=== PATIENT | female | born 1955 | race Caucasian/White ===

== ENCOUNTER 2017-04-29 11:43 | Inpatient (IN) | payer BC ==
[2017-04-29 13:16] LABS: Bilirubin Negative (Negative); Blood, Urine Negative (Negative); Clarity CLOUDY (Clear); Glucose, Urine (Dipstick) Negative (Negative); Leukocyte Large (Negative); Nitrite Positive (Negative); Protein, Urine (Dipstick) Negative (Neg-Trace); Specific Gravity, Urine 1.011 (1.002-1.036); Urobilinogen 0.2 mg/dL (0.2-1.0); pH, Urine 7.5 (5.0-9.0)
[2017-04-29 13:19] LABS: Bacteria/HPF 1+ HPF (None Seen); Hyaline Casts/LPF 0-3 HYALINE CAST LPF (0-3 Hyaline); RBC/HPF 0-3 HPF (0-3); Squamous Epithelial None Seen HPF (0-3)
[2017-04-29] MEDS ORDERED: Lorazepam 2 MG/ML VIAL ONE ×2 (14:38→15:49)
[2017-04-29] MEDS ORDERED: cefTRIAXone\\ROCEPHIN 2 GM in Sodium Chloride 0.9% 100 ML IVPB SCH (17:00)
[2017-04-29 17:40] LABS: #Basophils 0.1 thou/uL (0.0-0.2); #Eosinphils 0.1 thou/uL (0.0-0.7); #Lymphocytes 1.1 thou/uL (1.20-3.40); #Monocytes 0.8 thou/uL (0.11-0.59); #Neutrophils 8.5 thou/uL (1.40-6.50); %Basophils 0.7 % (0.0-1.0); %Eosinophils 0.9 % (0.0-10.0); %Lymphocytes 10.3 % (21.0-51.0); %Monocytes 7.7 % (0.0-10.0); %Neutrophils 80.3 % (42.0-75.0); Hemoglobin 13.4 g/dL (12.0-16.0); Mean Corpuscular HGB CONC 34.1 g/dL (32.0-36.0); Mean Corpuscular Hemoglobin 30.4 pg (27.0-31.0); Mean Corpuscular Volume 89.2 fl (81.0-99.0); Mean Platelet Volume 7.4 fL (7.4-10.4); Platelet Count 315 thou/uL (130-400); RBC Distribution Width 12.5 % (11.5-14.5); Red Blood Cell (RBC) Count 4.39 mill/uL (4.20-5.40); White Blood Cell (WBC) Count 10.6 thou/uL (4.8-10.8)
[2017-04-29 17:46] LABS: PTT 26.2 SEC (22.9-36.1); Prothrombin Time 12.9 SEC (12.0-14.7)
[2017-04-29 18:11] LABS: ALT (SGPT) 24 U/L (8-55); AST (SGOT) 24 U/L (5-34); Albumin 4.2 g/dL (3.4-4.8); Alkaline Phosphatase 153 U/L (40-150); Anion Gap 12 mmol/L (10-20); BUN (Urea Nitrogen) 7 mg/dL (9.8-20.1); Bilirubin, Total 0.4 mg/dL (0.2-1.2); Calc. Creatinine Clearance 0 mL/min (70-130); Calcium 10.1 mg/dL (7.8-10.44); Carbon Dioxide 27 mmol/L (23-31); Chloride 92 mmol/L (98-107); Estimated GFR-MDRD 81; Globulin 2.8 g/dL (2.4-3.5); Glucose 107 mg/dL (80-115); Potassium 4.4 mmol/L (3.5-5.1); Sodium 127 mmol/L (136-145)
--- NOTE | 2017-04-29 18:24 | MRI ---
THORACIC SPINE MRI WITH AND WITHOUT CONTRAST: Clinical history: Spinal cord compression, pain. FINDINGS: There is a extramedullary tumor of the midthoracic spine epicenter at the approximate T6 level. The m ass measures 3 cm craniocaudal x 1.5 cm AP and demonstrates an avid degree of enhancement with public relations intern al heterogeneity of the enhancement pattern which may relate to an internal cystic or necrotic compon ent. This does result in significant extrinsic compression upon the thoracic spinal cord at this leve l. There is patient motion which limits evaluation. No acute marrow edema. IMPRESSION: Intradural, extramedullary mass of the thoracic vertebral canal producing significant degree of extri nsic mass effect upon the spinal cord with severe cord compression. Motion artifact does limit assess ment although there is evidence to indicate associated cord edema at the spinal cord cephalad and cau rupal to the mass. Recommend neurosurgical consultation. POS: PHILIP
[2017-04-29] MEDS ORDERED: Mag-Al 1200 mg/1200 mg/30 ML UDCUP PO PRN (18:40)
[2017-04-29] MEDS ORDERED: Milk Of Magnesia 30 ML UDCUP PO PRN (18:40)
[2017-04-29] MEDS ORDERED: Acetaminophen 650 MG Suppository PR PRN (18:40)
[2017-04-29] MEDS ORDERED: Ondansetron PF 4 MG/2 ML Vial IVP PRN (18:40)
[2017-04-29] MEDS: Sodium Chloride 0.9% 1,000 ML IV SCH (20:33)
[2017-04-29] MEDS: Dexamethasone 4 mg/ml Vial SLOW IVP SCH (20:33)
[2017-04-29] MEDS: Famotidine/PF 20 mg/2ml Vial SLOW IVP SCH (20:33)
[2017-04-29] MEDS: cefTRIAXone\\ROCEPHIN 2 GM in Sodium Chloride 0.9% 100 ML IVPB SCH (20:45)
[2017-04-29] MEDS ORDERED: Pregabalin 50 MG CAP PO SCH (22:15)
[2017-04-29] MEDS ORDERED: oxyCODONE 5 MG TAB PO PRN (22:20)
[2017-04-29] MEDS ORDERED: oxyCODONE ER 20 MG TAB PO SCH (22:30)
[2017-04-29] MEDS ORDERED: clonazePAM 1 MG TAB PO SCH (22:30)
[2017-04-29] MEDS ORDERED: carBAMazepine 200 MG TAB PO SCH (22:30)
[2017-04-29 22:51] VITALS: BMI 20.8
[2017-04-30] MEDS: oxyCODONE 5 MG TAB PO PRN ×3 (00:03→23:46)
[2017-04-30] MEDS: Dexamethasone 4 mg/ml Vial SLOW IVP SCH ×4 (00:04→18:01)
--- NOTE | 2017-04-30 00:10 | HP ---
ATTENDING PHYSICIAN: Dr. Ravinder White. HISTORY OF PRESENT ILLNESS: The patient is a 61-year-old female with a past medical history of schwannomatosis, hypertension, hyperlipidemia, who presents to the emergency department for progressing worsening lower extremity weakness. Patient states that she had been unsteady on her feet for the last several months, but had significant decline over the last 3 weeks. 3 weeks ago , she began using a walker for regular ambulation. One week ago, she had additional decline where she could no longer lift herself from the chair or ambulate without assistance by her . The symptoms are also associated with signs of dysesthesia to bilateral lower extremities, right greater than the left, urinary retention, and constipation. She denies saddle anesthesia. Patient was brought to the ER by her family today for this rapid decline in her status. I am seeing the patient at the bedside. She is weak throughout the lower extremities 3/5 right greater than left, hyporeflexive throughout the lower extremities. She had a 500 mL postvoid residual. Partial T-spine imaging with MRI imaging with contrast was done, which showed intradural extramedullary lesion with spinal cord compression at T6. Patient was unable to tolerate remainder of the thoracic and lumbar MRI secondary to anxiety and pain. PAST MEDICAL HISTORY: Schwannomatosis, hypertension, hyperlipidemia. PAST SURGICAL HISTORY: Schwannoma excision in the left wrist, right sciatic nerve, and left cranial nerve. SOCIAL HISTORY: Patient is . She lives at home. She does not smoke, drink or use any drugs. ALLERGIES: She has no known drug allergies. PHYSICAL EXAMINATION: GENERAL: Patient is sitting comfortably in the bed in no acute distress. VITAL SIGNS: BP is 169/87, pulse is 76, respiration rate is 19, patient is 98% on room air, temperature is 97.7. HEENT: Normocephalic, atraumatic. EYES: PERRLA. Extraocular movements intact. ENT: Oral mucosa is pink, moist, intact. She has a normal voice. NECK: Nontender to palpation. Free active range of motion, no meningismus or nuchal rigidity. RESPIRATORY: She has symmetric chest expansion. She is breathing comfortably, no evidence of dyspnea. CARDIOVASCULAR: Regular rate and rhythm. ABDOMEN: Soft throughout, nontender to palpation. BACK: Tender to palpation over the mid thoracic spine and bilateral paraspinal musculature. NEUROLOGIC: Patient has a normal cranial nerve exam. She is A&O x4. She is weak throughout the lower extremities, 3/5. She has decreased sensation over the right proximal lateral leg. She is hyperreflexive throughout the lower extremities. Negative clonus. ASSESSMENT: T6 intradural extramedullary lesion suspicious for schwannoma with spinal cord compression. PLAN: Patient will be admitted to medical/surgical floor under our service. We will make her n.p.o. tonight with plans for MRI of thoracic and lumbar spine with anesthesia first thing in the morning. I have discussed this with Radha over a day stay and she is aware and patient has been asked to scheduled with priority. Medicine will also assist with medical management. We will also start the patient on Decadron at this time. I have discussed this plan with Dr. White, who is in agreement. RUBY
[2017-04-30] MEDS: Naproxen 500 MG TAB PO PRN ×2 (02:13→16:26)
[2017-04-30 04:37] LABS: #Lymphocytes 0.7 thou/uL (1.20-3.40); #Monocytes 0.4 thou/uL (0.11-0.59); #Neutrophils 9.3 thou/uL (1.40-6.50); %Basophils 0.5 % (0.0-1.0); %Eosinophils 0.1 % (0.0-10.0); %Lymphocytes 6.5 % (21.0-51.0); %Monocytes 4.2 % (0.0-10.0); %Neutrophils 88.8 % (42.0-75.0); Hemoglobin 12.5 g/dL (12.0-16.0); Mean Corpuscular HGB CONC 34.4 g/dL (32.0-36.0); Mean Corpuscular Hemoglobin 30.9 pg (27.0-31.0); Mean Corpuscular Volume 89.8 fl (81.0-99.0); Mean Platelet Volume 7.5 fL (7.4-10.4); Platelet Count 307 thou/uL (130-400); RBC Distribution Width 12.6 % (11.5-14.5); Red Blood Cell (RBC) Count 4.05 mill/uL (4.20-5.40); White Blood Cell (WBC) Count 10.4 thou/uL (4.8-10.8)
[2017-04-30 04:46] LABS: Anion Gap 10 mmol/L (10-20); BUN (Urea Nitrogen) 7 mg/dL (9.8-20.1); Calc. Creatinine Clearance 70 mL/min (70-130); Calcium 9.7 mg/dL (7.8-10.44); Carbon Dioxide 27 mmol/L (23-31); Chloride 99 mmol/L (98-107); Estimated GFR-MDRD 72; Glucose 152 mg/dL (80-115); Potassium 4.1 mmol/L (3.5-5.1); Sodium 132 mmol/L (136-145)
[2017-04-30] MEDS ORDERED: Sodium Chloride 0.65% Nasal 44 ML BOT EA NARE PRN (07:59)
[2017-04-30] MEDS ORDERED: Senokot 8.6 MG TAB PO PRN (07:59)
[2017-04-30] MEDS ORDERED: Ondansetron ODT 4 MG TAB PO PRN (07:59)
[2017-04-30] MEDS ORDERED: Artificial Tears 18 DROP/0.9 ML EA EYE PRN (07:59)
[2017-04-30] MEDS ORDERED: Temazepam 15 MG CAP PO PRN (07:59)
[2017-04-30] MEDS ORDERED: Chloraseptic Spray 180 ml Bottle PO PRN (07:59)
[2017-04-30] MEDS ORDERED: Loratadine 10 MG TAB PO PRN (07:59)
[2017-04-30] MEDS ORDERED: hydrALAZINE 20 MG/ML VIAL SLOW IVP PRN (07:59)
[2017-04-30] MEDS ORDERED: Diabetic Tussin 200 MG/10 ML UDCUP PO PRN (07:59)
[2017-04-30] MEDS ORDERED: Loperamide HCl 2 MG CAP PO PRN (07:59)
[2017-04-30] MEDS ORDERED: Eucerin (Mineral Oil/Petrolatum,White) 30 gm Jar TOP PRN (07:59)
[2017-04-30] MEDS: Amlodipine 5 MG TAB PO SCH (08:40)
[2017-04-30] MEDS: carBAMazepine 200 MG TAB PO SCH ×4 (08:41→21:36)
[2017-04-30] MEDS: clonazePAM 1 MG TAB PO SCH ×4 (08:41→21:36)
[2017-04-30] MEDS: oxyCODONE ER 20 MG TAB PO SCH ×2 (08:42→21:37)
[2017-04-30] MEDS: Famotidine/PF 20 mg/2ml Vial SLOW IVP SCH ×2 (08:42→21:40)
[2017-04-30] MEDS: Loratadine/Pseudoephedrine 10/240 mg Tablet PO SCH (08:43)
[2017-04-30] MEDS ORDERED: Fluticasone Propionate Nasal Spray 16 gm Bottle NASAL SCH (09:00)
[2017-04-30] MEDS ORDERED: Non-Formulary Item 1 EACH (Benazepril Hcl [Benazepril Hcl] 40 MG) PO SCH (09:00)
[2017-04-30] MEDS ORDERED: OXYCODONE HCL 60 MG PO SCH (09:00)
[2017-04-30] MEDS ORDERED: Polyethylene Glycol 3350 17 GM Packet PO SCH (09:00)
[2017-04-30] MEDS: Polyethylene Glycol 3350 17 GM Packet PO SCH (09:57)
[2017-04-30] MEDS: Sodium Chloride 0.9% 1,000 ML IV SCH ×2 (09:57→23:49)
--- NOTE | 2017-04-30 11:01 | PRG ---
DATE OF SERVICE: 04/29/2017 HISTORY OF PRESENT ILLNESS: I am seeing Ms. Moffett regarding progressive paraplegia. Please refer to Chasidy Thompson's dictation for full details. In brief, Ms. Moffett is a 61-year-old woman with a history of schwannoma ptosis having had an intracra nial schwannoma removed as well as multiple peripheral nerve tumors including a sciatic tumor that wa s removed. She has not had recent surveillance. For the past 6 months she has had progressive walki ng difficulty that has been progressive of late. She is currently unable to ambulate independently w ith diffuse weakness in the legs. She has also had some complaints of dysfunction in the urinary and bowel functions with a recent UTI as well. MRI of thoracic spine reveals a large T6 tumor likely to be an intradural schwannoma compressing the spinal cord. ASSESSMENT AND PLAN: The patient has a large thoracic tumor causing paraplegia and this will need to be surgically resected. We discussed indications, alternatives of removing this with the patient an d her . I estimated approximately 10% likelihood of neurologic deterioration with surgery and we also discussed complications including CSF leak and other. They expressed understanding and wish ed to proceed.
[2017-04-30] MEDS ORDERED: oxyCODONE 5 MG TAB PO SCH (12:00)
[2017-04-30] MEDS ORDERED: Fentanyl 100 MCG/2 ML VIAL ONE (12:02)
[2017-04-30] MEDS ORDERED: Midazolam HCl 2 mg/2 ml Vial ONE (12:02)
[2017-04-30] MEDS ORDERED: HYDROmorphone 0.5 MG/0.5 ML SYRINGE ONE (14:01)
--- NOTE | 2017-04-30 15:14 | MRI ---
MRI OF THE LUMBAR SPINE WITH AND WITHOUT CONTRAST: DATE: 04/30/17. COMPARISON: None. HISTORY: Lower extremity weakness, assess for cauda equina syndrome, thoracic spine mass noted on 04/29/17 [facility] spine MRI. TECHNIQUE: Multiplanar multisequence MRI imaging of the lumbar spine is provided with and without contrast. FINDINGS: The sagittal STIR imaging demonstrates no focal area of osseous marrow edema. There is significant l umbar spine levoscoliosis centered at the L1-2 level. There is no significant anterolisthesis or retrolisthesis noted within the lumbar spine. Assuming 5 lumbar-type vertebral bodies, conus medullaris terminates at the T12-L1 level. T12-L1: Intervertebral disk height and signal intensity is within normal limits. Mild left-sided fa cet hypertrophy. No significant central canal or neural foraminal stenosis. L1-2: There is mild bilateral facet hypertrophy. There is disk space narrowing and disk desiccation with mild disk bulge. No associated central canal stenosis. Left lateral osteophyte formation note d. There is associated mild to moderate left neural foraminal stenosis. No significant central canal or right neural foraminal stenosis. L2-3: There is prominent degenerative end plate change. There is disk space narrowing, disk desicca tion, and right-sided disk-osteophyte complex with minimal right lateral recess stenosis. There is b ilateral facet hypertrophy with a moderate degree of right neural foraminal stenosis. No left neural foraminal stenosis. L3-4: There is bilateral facet hypertrophy. There is disk desiccation, disk space narrowing, and va cuum disk formation. There is mild to moderate right neural foraminal stenosis. No significant cent ral canal or left neural foraminal stenosis. L4-5: Bilateral facet hypertrophy present. There is disk desiccation. No significant central canal or neural foraminal stenosis. L5-S1: Left-sided hemilaminectomy changes are present. There is no significant central canal or elena ral foraminal stenosis. Multiple expansile T2 hyperintense lesions noted within the sacrum. These represent numerous perineu ral sleeve cysts/Tarlov cysts. Partially imaged uterus is heterogeneous and demonstrates partially visualized irregular masses sugge sting a fibroid uterus. Postcontrast imaging demonstrates an enhancing mass within the nerve roots of the cauda equina just t o the right of midline measuring 8 mm, at the axial level of the L2-3 interspace. The postcontrast imaging is otherwise unremarkable. The imaged retroperitoneal structures appear grossly unremarkable. IMPRESSION: 1. There is an enhancing lesion associated with the nerve roots of the cauda equina at the L2-3 leve l. The differential diagnosis for this lesion includes neurogenic tumor, including schwannoma, versu s metastatic disease. Of note, there is a lesion within the thoracic spine which demonstrates a conf iguration most suspicious for a tumor such as neurofibroma or schwannoma. 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 Recommend full imaging of the neuro ax is with brain and cervical spine MRI with and without contrast. CODE T POS: YESENIA
--- NOTE | 2017-04-30 15:19 | MRI ---
THORACIC SPINE MRI WITH AND WITHOUT CONTRAST: CLINICAL HISTORY: Spinal mass. FINDINGS: Repeat imaging requested by neurosurgeon due to prior motion artifact. Re-demonstration of an intradural extramedullary mass centered at the T6 level, which occupies the ma jority of the vertebral canal and markedly displaces and flattens the thoracic spinal cord to the lef t anterolateral wall of the vertebral column. The mass extends through and expands the right neural foramen, which is more optimally depicted without the preceding motion artifact. The mass measures 3 .2 cm in craniocaudal dimension x 1.7 cm AP x 3 cm transverse, when including the right foraminal ext ension. There is mild associated intrinsic T2 hyperintensity of the region of compressed spinal cord, discuss ed above, likely related to intramedullary edema. IMPRESSION: Prominent sized mass located within the intradural extramedullary space, at the T6 level, which does traverse and expand the right neural foramen. This produces marked cord compression and left anterol ateral cord displacement. Associated cord edema is present. The morphology of this finding favors a schwannoma. 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 These exams sh ould be performed with and without contrast. POS: YESENIA
--- NOTE | 2017-04-30 15:29 | CON ---
PRIMARY CARE PHYSICIAN: Indira Wood M.D. PRIMARY ATTENDING: Ravinder White M.D. REASON FOR CONSULT: Medical comanagement. REASON FOR ADMISSION: Thoracic spine tumor and paraplegia. HISTORY OF PRESENT ILLNESS: A 61-year-old female who has underlying history of schwannoma and chroni c pain disorder secondary to schwannoma. For last 3 weeks, patient has gradually difficulty ambulati on. She is not able to keep herself stand. She requires lot of assistance to ambulate at home. She is having both lower extremity weakness. The patient was also having difficulty urination. She was having dysuria as well as agitation. She was also constipated lately, regular stool softener, which was used to work but for the last few days , stool softener is also not working. Patient had episode of fall from standing and she landed on her back and after that she was having si gnificant amount of pain and that is why family member brought her to the emergency room. Patient thompson s numbness in right lower extremity. She denies any saddle anesthesia or incontinence. At home for the last 2-3 weeks, patient was requiring walker for ambulation and with a lot of support from her hu sband as well. She denies any fever. She denies any chills. She denies any nausea, vomiting, chest pain, palpitation. This patient was evaluated in the emergency room. She had thoracic spine MRI which showed intraducta l extramedullary mass of the thoracic vertebral canal with significant spinal cord compression. Laurel ent was admitted under Neurosurgery and subsequently we were consulted for medical comanagement. This patient has underlying history of schwannoma, hypertension, chronic pain disorder, and dyslipide ab. REVIEW OF SYSTEMS: The following complete review of systems was negative, unless otherwise mentioned in the HPI or below: Constitutional: Weight loss or gain, ability to conduct usual activities. Skin: Rash, itching. Eyes: Double vision, pain. ENT/Mouth: Nose bleeding, neck stiffness, pain, tenderness. Cardiovascular: Palpitations, dyspnea on exertion, orthopnea. Respiratory: Shortness of breath, wheezing, cough, hemoptysis, fever or night sweats. Gastrointestinal: Poor appetite, abdominal pain, heartburn, nausea, vomiting, constipation, or diarr hea. Genitourinary: Urgency, frequency, dysuria, nocturia. Musculoskeletal: Pain, swelling. Neurologic/Psychiatric: Anxiety, depression. Allergy/Immunologic: Skin rash, bleeding tendency. Please see my HPI for pertinent positive and negative. All other review of systems reviewed and nega tive except as mentioned in the HPI. ALLERGIES: No known drug allergies. CURRENT HOME MEDICATIONS: Amlodipine 2.5 mg p.o. daily, benazepril 40 mg p.o. daily, Tegretol 200 mg q.i.d., cetirizine with pseudoephedrine one tablet p.o. daily, clonazepam 1 mg p.o. q.i.d., Flonase nasal spray daily, naproxen 500 mg twice daily, oxycodone 2 tablets q.6 hourly p.r.n., OxyContin 60 m g p.o. b.i.d., MiraLax 17 grams p.o. daily, Lyrica 100 mg p.o. at bedtime, Crestor 20 mg p.o. daily. PAST MEDICAL HISTORY: Hypertension, schwannoma, and dyslipidemia. PAST SURGICAL HISTORY: History of schwannoma excision in left wrist, right sciatic nerve and cranial nerve 5. PAST PSYCHIATRIC HISTORY: Reviewed and negative. SOCIAL HISTORY: Patient is . She lives at home with her . No history of tobacco, alc ohol or illicit drug abuse. FAMILY HISTORY: No strong family history of premature coronary artery disease, stroke or cancer. EMERGENCY ROOM COURSE: Patient was given Rocephin 2 grams and Ativan 1 mg. PHYSICAL EXAMINATION: VITAL SIGNS: On arrival to the emergency room, blood pressure 169/87, pulse 76, respiratory rate 19, temperature 97.7, saturation 98% on room air, weight 63.5 kilograms. GENERAL: Patient is currently alert, awake, hypertensive, in no obvious acute distress. HEAD: Normocephalic, atraumatic. EYES: Pupils round, reactive to light. Extraocular muscle intact. ENT: Oropharynx within normal limits. Moist mucous membranes. No oral lesions. No pharyngeal eryt shelley, no exudate. NECK: Supple, no JVD, no thyromegaly, no carotid bruit, no jugular venous distention. LUNGS: Clear to auscultation without any rhonchi or rales. CARDIAC: S1 and S2 regular without any murmur. ABDOMEN: Soft. Bowel sounds present. No suprapubic tenderness. Rectal examination was done in the emergency room and as per report, rectal tone was absent. BACK: On examination, no CVA tenderness. No point tenderness. EXTREMITIES: Upper extremity passive movements of all joints are normal. Lower extremity passive mo vements of all joints are normal. No edema, good peripheral pulsation. SKIN: No skin rash. HEMATOLOGICAL SYSTEM: No lymphadenopathy. PSYCHIATRIC: Normal affect. NEUROLOGIC: The patient does have weakness of right lower extremity on both side. Patient also has reduced sensation in both lower extremities as well as saddle anesthesia. ASSESSMENT AND PLAN/IMPRESSION: 1. Paraplegia likely due to intraductal extramedullary spinal mass with severe spinal cord compressi on in thoracic spine. Neurosurgeon already admitted this patient. This patient is going to get MRI under anesthesia later on today and patient is planned for surgical intervention tomorrow. We will d efer management to primary team. 2. Urinary tract infection. Patient will be treated with Rocephin 2 gram IV daily. We will follow up on urine culture result. So far, urine culture is growing E. coli, sensitivities pending. 3. Hyponatremia. The patient is receiving IV fluid. I am suspecting hyponatremia may be related wi th Tegretol from syndrome of inappropriate antidiuretic hormone. We will repeat BMP tomorrow. If so dium does not improve, then we will stop IV fluids. If sodium is continued to low, then we will cons ider doing hyponatremia workup. 4. Hypertension. The patient's hypertension is most likely related with her pain, but patient will continue her home dose of amlodipine and benazepril. 5. Dyslipidemia. We will continue Crestor 20 mg p.o. at bedtime. 6. Chronic pain disorder. The patient has schwannoma and that is causing a lot of pain. The patien t is on OxyContin as well as oxycodone immediate release, Lyrica, Klonopin and naproxen, which we morgan l continue as per home dosage. 7. Deep venous thrombosis prophylaxis. We will hold on Lovenox therapy because patient is planned f or spinal surgery tomorrow. 8. Gastrointestinal prophylaxis. The patient is already on Pepcid 20 mg IV b.i.d. 9. Code status: The patient is FULL CODE. Patient's is surrogate decision maker. Disposition plan based on clinical course. We are expecting patient's stay in hospital more than 2 m idnights. Eventually, this patient will need placement to rehabilitation. Thank you for the consult. We will follow up with you while in hospital.
[2017-04-30] MEDS ORDERED: Rosuvastatin 20 MG TAB PO SCH (21:00)
[2017-04-30] MEDS ORDERED: Pregabalin 50 MG CAP PO SCH (21:00)
[2017-04-30] MEDS: Rosuvastatin 20 MG TAB PO SCH (21:39)
[2017-04-30] MEDS: Pregabalin 50 MG CAP PO SCH (21:39)
[2017-04-30] MEDS: cefTRIAXone\\ROCEPHIN 2 GM in Sodium Chloride 0.9% 100 ML IVPB SCH (21:54)
[2017-05-01] MEDS: Dexamethasone 4 mg/ml Vial SLOW IVP SCH ×2 (01:17→13:44)
[2017-05-01 06:07] LABS: #Basophils 0.1 thou/uL (0.0-0.2); #Monocytes 0.5 thou/uL (0.11-0.59); #Neutrophils 7.9 thou/uL (1.40-6.50); %Basophils 0.6 % (0.0-1.0); %Eosinophils 0.4 % (0.0-10.0); %Lymphocytes 10.5 % (21.0-51.0); %Monocytes 5.1 % (0.0-10.0); %Neutrophils 83.3 % (42.0-75.0); Hemoglobin 11.5 g/dL (12.0-16.0); Mean Corpuscular Hemoglobin 30.2 pg (27.0-31.0); Mean Corpuscular Volume 91.6 fl (81.0-99.0); Mean Platelet Volume 7.3 fL (7.4-10.4); Platelet Count 305 thou/uL (130-400); RBC Distribution Width 12.8 % (11.5-14.5); Red Blood Cell (RBC) Count 3.82 mill/uL (4.20-5.40); White Blood Cell (WBC) Count 9.4 thou/uL (4.8-10.8)
[2017-05-01 06:22] LABS: Anion Gap 9 mmol/L (10-20); BUN (Urea Nitrogen) 8 mg/dL (9.8-20.1); Calc. Creatinine Clearance 80 mL/min (70-130); Calcium 9.2 mg/dL (7.8-10.44); Carbon Dioxide 28 mmol/L (23-31); Chloride 103 mmol/L (98-107); Estimated GFR-MDRD 85; Glucose 118 mg/dL (80-115); Potassium 3.8 mmol/L (3.5-5.1); Sodium 136 mmol/L (136-145)
[2017-05-01] MEDS ORDERED: CEFAZOLIN/Water 2 GM/20 ML SYRINGE ONE (06:55)
[2017-05-01] MEDS ORDERED: Nitroglycerin 50 MG/250 ML BOT 250 ML ONE (07:12)
[2017-05-01] MEDS ORDERED: Fentanyl 100 MCG/2 ML VIAL ONE ×3 (07:24→10:59)
[2017-05-01] MEDS ORDERED: PHENYLEPHRINE-NS 100 MCG/ML 10 ML SYRINGE ONE ×2 (09:49→14:56)
[2017-05-01] MEDS ORDERED: Ondansetron HCl/PF 4 MG/2 ML Vial IVP PRN (10:17)
[2017-05-01] MEDS ORDERED: Promethazine HCl 25 MG/ML VIAL IM PRN (10:17)
[2017-05-01] MEDS ORDERED: PACU-Morphine 4MG/ML VIAL SLOW IVP PRN (10:17)
[2017-05-01] MEDS ORDERED: Promethazine HCl 25 MG/ML VIAL SLOW IVP PRN (10:17)
[2017-05-01] MEDS ORDERED: HYDROmorphone 2 MG/ML VIAL SLOW IVP PRN (10:17)
[2017-05-01] MEDS ORDERED: HYDROmorphone 0.5 MG/0.5 ML SYRINGE ONE (10:25)
--- NOTE | 2017-05-01 10:47 | OP ---
DATE OF PROCEDURE: 05/01/2017 SURGEON: Ravinder White M.D. MOTORBOAT MECHANIC HELPER: Jethro Nolan PA-C PROCEDURE: T5-T7 thoracic laminectomies, excision intradural extramedullary tumor, operating microsc ope. PROCEDURE IN DETAIL: The patient was brought into the operating room, intubated. She was rolled in the prone position on gel-filled chest rolls. Incision made exposing T5 through T7 and our level was confirmed by x-ray. We performed complete T7, complete T6, and complete T5 laminectomies. After co mplete exposure and then extending the exposure to the right T6 neural foramen. We opened the dura a nd the tumor was immediately evident distorting the spinal cord as anticipated and extending up the r ight T6 neural foramen. We carefully dissected around the tumor and ultimately needed to debulk the tumor to obtain adequate room. Multiple specimens were sent for final pathologic examination. The t umor was fairly easily detached from the spinal cord. After we completely removed the intrathecal co mponent of the tumor, we focused on the foraminal component. At the distal aspect, we identified mack e normal nerve outside the foramen and using a Ligaclip clipped the nerve at this stage. At the medi al aspect a large dural defect had been created by the tumor. We completely resected the tumor and a gross total resection was achieved. Next, we used bovine pericardium to repair the foraminal dural defect using 4-0 silk sutures in an interrupted fashion. Next, the midline dura was closed with a ru nning 4-0 Prolene suture. This was reinforced with Duragen artificial dura and the substantial Gelfo am was placed in the neural foramen. After the wound had been extensively irrigated and immaculate h emostasis was secured. Vancomycin powder was applied and the wound was closed in anatomic layers.
--- NOTE | 2017-05-01 11:00 | PDOC.PN ---
- Subjective Encounter Start Date: 05/01/17 Encounter Start Time: 09:20 -: old records requested/rev - Objective Resuscitation Status: Resuscitation Status FULL:Full Resuscitation MAR Reviewed: Yes Vital Signs & Weight: Vital Signs (12 hours) Temp Pulse Resp BP BP Pulse Ox 05/01/17 06:27 98.3 F 80 19 191/95 H 100 05/01/17 06:25 80 191/95 H 05/01/17 06:00 98.3 F 80 19 191/95 H 100 05/01/17 00:00 97.8 F 84 16 159/84 H 96 Weight Weight 135 lb I&O: 04/30/17 05/01/17 05/02/17 06:59 06:59 06:59 Intake Total 1999 2395 Output Total 2499 2350 Balance -500 45 Result Diagrams: 05/01/17 05:45 05/01/17 05:45 Phys Exam - Physical Examination Constitutional: NAD HEENT: PERRLA, moist MMs, sclera anicteric Neck: no JVD, supple Respiratory: no wheezing, no rales, no rhonchi Cardiovascular: RRR, no significant murmur, no rub Gastrointestinal: soft, non-tender, no distention, positive bowel sounds paraplegia Lymphatic: no nodes Psychiatric: normal affect Skin: no rash, normal turgor Dx/Plan (1) Hyponatremia Code(s): E87.1 - HYPO-OSMOLALITY AND HYPONATREMIA Status: Resolved (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 - NEOPLM OF UNSP BEHAV OF ENDO GLANDS AND OTH PRT NERVOUS SYS Status: Acute Comment: s/p thorecic laminectomy and tumor excision (3) Paraplegia at T9 level Code(s): G83.9 - PARALYTIC SYNDROME, UNSPECIFIED Status: Acute (4) UTI (urinary tract infection) Status: Acute (5) Chronic pain disorder Code(s): G89.4 - CHRONIC PAIN SYNDROME Status: Chronic (6) Dyslipidemia Code(s): E78.5 - HYPERLIPIDEMIA, UNSPECIFIED Status: Chronic (7) Hypertension Code(s): I10 - ESSENTIAL (PRIMARY) HYPERTENSION Status: Chronic (8) Schwannoma Code(s): D36.10 - BENIGN NEOPLASM OF PRPH NERVES AND AUTONM NERVOUS SYS, UNSP Status: Chronic - Plan cont current plan of care, continue antibiotics * continue post operative care as per neurosurgeon * continue rocephin * continue home meds * medication reviewed as below * symptomatic treatment * will need rehab on discharge. Review of Systems - Review of Systems Constitutional: negative: fever, chills, sweats, weakness, malaise, other Eyes: negative: Pain, Vision Change, Conjunctivae Inflammation, Eyelid Inflammation, Redness, Other ENT: negative: Ear Pain, Ear Discharge, Nose Pain, Nose Discharge, Nose Congestion, Mouth Pain, Mouth Swelling, Throat Pain, Throat Swelling, Other Respiratory: negative: Cough, Dry, Shortness of Breath, Hemoptysis, SOB with Excertion, Pleuritic Pain, Sputum, Wheezing Cardiovascular: negative: chest pain, palpitations, orthopnea, paroxysmal nocturnal dyspnea, edema, light headedness, other Gastrointestinal: negative: Nausea, Vomiting, Abdominal Pain, Diarrhea, Constipation, Melena, Hematochezia, Other Genitourinary: negative: Dysuria, Frequency, Incontinence, Hematuria, Retention , Other - Medications/Allergies Allergies/Adverse Reactions: Allergies Allergy/AdvReac Type Severity Reaction Status Date / Time No Known Drug Allergies Allergy Verified 04/29/17 16:42 Medications: Current Medications Acetaminophen (Tylenol) 650 mg [place] Q4H PRN PRN Reason: Headache/Fever or Pain Acetaminophen (Tylenol) 650 mg PO Q4H PRN PRN Reason: Headache/Fever or Mild Pain Hydrocodone Bitart/Acetaminophen ([place] 10/325) 1 tab PO Q4H PRN PRN Reason: Moderate Pain (4-6) Al Hydroxide/Mg Hydroxide (Maalox) 30 ml PO Q6H PRN PRN Reason: Heartburn or Indigestion Amlodipine Besylate (Norvasc) 2.5 mg PO DAILY [facility] Last Admin: 04/30/17 08:40 Dose: 2.5 mg Artificial Tears (Tears Naturale) 0 drop EA EYE PRN PRN PRN Reason: Dry Eyes Benazepril HCl (Lotensin) 40 mg PO DAILY [facility] Last Admin: 04/30/17 08:41 Dose: 40 mg Carbamazepine (Tegretol) 200 mg PO QID [facility] Last Admin: 04/30/17 21:36 Dose: 200 mg Clonazepam (Klonopin) 1 mg PO QID [facility] Last Admin: 04/30/17 21:36 Dose: 1 mg Famotidine (Pepcid) 20 mg SLOW IVP Q12HR [facility] Last Admin: 04/30/17 21:40 Dose: 20 mg Fentanyl (Pacu-Sublimaze) 50 mcg SLOW IVP Q10MIN PRN PRN Reason: Moderate to Severe Pain (6-10) Stop: 05/01/17 13:17 Fluticasone Propionate (Flonase Nasal [place]) 0 gm NASAL DAILY [facility] Guaifenesin (Robitussin Sf) 200 mg PO Q4H PRN PRN Reason: Cough Hydralazine HCl (Apresoline) 10 mg SLOW IVP Q4H PRN PRN Reason: Systolic BP > 180 Last Admin: 05/01/17 06:25 Dose: 10 mg Hydromorphone HCl (Pacu-Dilaudid) 0.5 mg SLOW IVP Q10MIN PRN PRN Reason: Moderate to Severe Pain (6-10) Stop: 05/01/17 13:17 Sodium Chloride (Normal Saline 0.9%) 1,000 mls @ 75 mls/hr IV .[id number] [facility] Last Admin: 04/30/17 23:49 Dose: 1,000 mls Ceftriaxone Sodium 2 gm/ (Sodium Chloride) 100 mls @ 200 mls/hr IVPB 2100 [facility] Last Admin: 04/30/17 21:54 Dose: 100 mls Loperamide HCl (Imodium) 2 mg PO PRN PRN PRN Reason: Diarrhea/Loose Stools Loratadine/Pseudoephedrine Sulfate (Claritin-D 24 Hour) 1 tab PO DAILY [facility] Last Admin: 04/30/17 08:43 Dose: 1 tab Magnesium Hydroxide (Milk Of Magnesium) 30 ml PO DAILYPRN PRN PRN Reason: Constipation Mineral Oil/White Petrolatum (Eucerin Cream) 0 gm TOP BIDPRN PRN PRN Reason: Dry Skin Morphine Sulfate (Morphine) 2 mg SLOW IVP Q4H PRN PRN Reason: Severe Pain (7-10) Morphine Sulfate (Pacu-Morphine Sulfate) 4 mg SLOW IVP ONE PRN PRN Reason: Moderate to Severe Pain (6-10) Stop: 05/01/17 13:17 Ondansetron HCl (Zofran) 4 mg IVP Q6H PRN PRN Reason: Nausea/Vomiting Ondansetron HCl (Zofran Odt) 4 mg PO Q6H PRN PRN Reason: Nausea/Vomiting Ondansetron HCl (Pacu-Zofran) 4 mg IVP ONE PRN PRN Reason: Nausea/Vomiting Stop: 05/01/17 13:17 Oxycodone HCl (Oxycodone Ir) 5 mg PO Q6H PRN PRN Reason: .BREAKTHROUGH PAIN Oxycodone HCl (Oxycodone Ir) 10 mg PO Q6H PRN PRN Reason: .BREAKTHROUGH PAIN SEVERE Last Admin: 04/30/17 23:46 Dose: 10 mg Oxycodone HCl (Oxycontin) 60 mg PO Q12HR [facility] Last Admin: 04/30/17 21:37 Dose: 60 mg Phenol (Chloraseptic [place] 180 Ml Bot) 0 ml PO PRN PRN PRN Reason: Sore Throat Polyethylene Glycol (Miralax) 17 gm PO DAILY [facility] Last Admin: 04/30/17 09:57 Dose: Not Given Pregabalin (Lyrica) 100 mg PO [facility] Last Admin: 04/30/17 21:39 Dose: 100 mg Promethazine HCl (Pacu-Phenergan) 6.25 mg SLOW IVP ONE PRN PRN Reason: Nausea/Vomiting Stop: 05/01/17 13:17 Promethazine HCl (Pacu-Phenergan) 6.25 mg IM ONE PRN PRN Reason: Nausea/Vomiting Stop: 05/01/17 13:17 Rosuvastatin Calcium (Crestor) 20 mg PO [facility] Last Admin: 04/30/17 21:39 Dose: 20 mg Senna (Senokot) 2 tab PO HSPRN PRN PRN Reason: Constipation Sodium Chloride ([place] Nasal [place] 0.65%) 0 ml EA NARE QIDPRN PRN PRN Reason: Nasal Congestion Temazepam (Restoril) 15 mg PO HSPRN PRN PRN Reason: Insomnia
[2017-05-01] MEDS: Amlodipine 5 MG TAB PO SCH (11:50)
[2017-05-01] MEDS: oxyCODONE ER 20 MG TAB PO SCH ×2 (11:51→20:24)
[2017-05-01] MEDS: Loratadine/Pseudoephedrine 10/240 mg Tablet PO SCH (11:51)
[2017-05-01] MEDS: Fluticasone Propionate Nasal Spray 16 gm Bottle NASAL SCH (11:51)
[2017-05-01] MEDS: clonazePAM 1 MG TAB PO SCH ×4 (11:51→20:27)
[2017-05-01] MEDS: carBAMazepine 200 MG TAB PO SCH ×4 (11:51→20:26)
[2017-05-01] MEDS: Famotidine/PF 20 mg/2ml Vial SLOW IVP SCH ×2 (11:51→20:27)
[2017-05-01] MEDS: Sodium Chloride 0.9% 1,000 ML IV SCH ×2 (11:52→20:37)
[2017-05-01] MEDS: Polyethylene Glycol 3350 17 GM Packet PO SCH (11:52)
[2017-05-01] MEDS: oxyCODONE 5 MG TAB PO PRN ×2 (12:41→22:07)
[2017-05-01] MEDS ORDERED: Dexamethasone 20 MG/5 ML VIAL ONE (14:56)
[2017-05-01] MEDS ORDERED: Glycopyrrolate 0.2 MG/ML 5 ML SYRINGE ONE (14:56)
[2017-05-01] MEDS ORDERED: Ondansetron PF 4 MG/2 ML Vial ONE (14:56)
[2017-05-01] MEDS ORDERED: Lidocaine 1% PF 5 ML VIAL ONE (14:56)
[2017-05-01] MEDS ORDERED: PROPOFOL 200 MG/20 ML VIAL ONE (14:56)
[2017-05-01] MEDS: Rosuvastatin 20 MG TAB PO SCH (20:21)
[2017-05-01] MEDS: Pregabalin 50 MG CAP PO SCH (20:27)
[2017-05-01] MEDS: cefTRIAXone\\ROCEPHIN 2 GM in Sodium Chloride 0.9% 100 ML IVPB SCH (20:27)
[2017-05-02] MEDS: Acetaminophen 325 MG TAB PO PRN ×2 (00:35→17:27)
[2017-05-02] MEDS: oxyCODONE 5 MG TAB PO PRN ×3 (04:14→17:28)
[2017-05-02] MEDS: carBAMazepine 200 MG TAB PO SCH ×4 (08:36→21:09)
[2017-05-02] MEDS: clonazePAM 1 MG TAB PO SCH ×4 (08:36→21:08)
[2017-05-02] MEDS: Amlodipine 5 MG TAB PO SCH (08:36)
[2017-05-02] MEDS: oxyCODONE ER 20 MG TAB PO SCH ×2 (08:37→21:07)
[2017-05-02] MEDS: Fluticasone Propionate Nasal Spray 16 gm Bottle NASAL SCH (08:37)
[2017-05-02] MEDS: Loratadine/Pseudoephedrine 10/240 mg Tablet PO SCH (08:37)
[2017-05-02] MEDS: Polyethylene Glycol 3350 17 GM Packet PO SCH (08:38)
[2017-05-02] MEDS: Famotidine/PF 20 mg/2ml Vial SLOW IVP SCH ×2 (08:38→21:09)
[2017-05-02] MEDS ORDERED: Fleet Enema 133 ML BOT PR SCH (10:30)
--- NOTE | 2017-05-02 10:52 | PDOC.PN ---
- Subjective Encounter Start Date: 05/02/17 Encounter Start Time: 08:30 Patient seen and examined. No new complaints. No overnight events still has uncontrolled pain, has no BM for 4 - 5 days - Objective Resuscitation Status: Resuscitation Status FULL:Full Resuscitation MAR Reviewed: Yes Vital Signs & Weight: Vital Signs (12 hours) Temp Pulse Resp BP BP Pulse Ox 05/02/17 08:36 99 159/71 H 05/02/17 08:35 159/71 H 05/02/17 07:45 98.1 F 100 20 159/71 H 96 05/02/17 05:12 98.4 F 96 17 154/75 H 95 05/02/17 00:30 100.1 F H 96 18 164/75 H 96 Weight Weight 135 lb I&O: 05/01/17 05/02/17 05/03/17 06:59 06:59 06:59 Intake Total 2395 3628 Output Total 2350 2050 Balance 45 1578 Result Diagrams: 05/01/17 05:45 05/01/17 05:45 Phys Exam - Physical Examination Constitutional: NAD HEENT: PERRLA, moist MMs, sclera anicteric Neck: no JVD, supple Respiratory: no wheezing, no rales, no rhonchi Cardiovascular: RRR, no significant murmur, no rub Gastrointestinal: soft, non-tender, no distention, positive bowel sounds Musculoskeletal: no edema, pulses present Lymphatic: no nodes Psychiatric: normal affect, A&O x 3 Skin: no rash, normal turgor Dx/Plan (1) Hyponatremia Code(s): E87.1 - HYPO-OSMOLALITY AND HYPONATREMIA Status: Resolved (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 - NEOPLM OF UNSP BEHAV OF ENDO GLANDS AND OTH PRT NERVOUS SYS Status: Acute Comment: s/p thorecic laminectomy and tumor excision (3) Paraplegia at T9 level Code(s): G83.9 - PARALYTIC SYNDROME, UNSPECIFIED Status: Acute (4) UTI (urinary tract infection) Status: Acute (5) Chronic pain disorder Code(s): G89.4 - CHRONIC PAIN SYNDROME Status: Chronic (6) Dyslipidemia Code(s): E78.5 - HYPERLIPIDEMIA, UNSPECIFIED Status: Chronic (7) Hypertension Code(s): I10 - ESSENTIAL (PRIMARY) HYPERTENSION Status: Chronic (8) Schwannoma Code(s): D36.10 - BENIGN NEOPLASM OF PRPH NERVES AND AUTONM NERVOUS SYS, UNSP Status: Chronic - Plan cont current plan of care, plan discussed w/ family, 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 * will need rehab on discharge * medication reviewed as below * symptomatic treatment * continue rocephin Review of Systems - Review of Systems Constitutional: negative: fever, chills, sweats, weakness, malaise, other Eyes: negative: Pain, Vision Change, Conjunctivae Inflammation, Eyelid Inflammation, Redness, Other ENT: negative: Ear Pain, Ear Discharge, Nose Pain, Nose Discharge, Nose Congestion, Mouth Pain, Mouth Swelling, Throat Pain, Throat Swelling, Other Respiratory: negative: Cough, Dry, Shortness of Breath, Hemoptysis, SOB with Excertion, Pleuritic Pain, Sputum, Wheezing Cardiovascular: negative: chest pain, palpitations, orthopnea, paroxysmal nocturnal dyspnea, edema, light headedness, other Gastrointestinal: Constipation. negative: Nausea, Vomiting, Abdominal Pain, Diarrhea, Melena, Hematochezia, Other Musculoskeletal: Back Pain. negative: Neck Pain, Shoulder Pain, Arm Pain, Hand Pain, Leg Pain, Foot Pain, Other - Medications/Allergies Allergies/Adverse Reactions: Allergies Allergy/AdvReac Type Severity Reaction Status Date / Time No Known Drug Allergies Allergy Verified 04/29/17 16:42 Medications: Current Medications Acetaminophen (Tylenol) 650 mg [place] Q4H PRN PRN Reason: Headache/Fever or Pain Acetaminophen (Tylenol) 650 mg PO Q4H PRN PRN Reason: Headache/Fever or Mild Pain Last Admin: 05/02/17 00:35 Dose: 650 mg Hydrocodone Bitart/Acetaminophen ([place] 10/325) 1 tab PO Q4H PRN PRN Reason: Moderate Pain (4-6) Al Hydroxide/Mg Hydroxide (Maalox) 30 ml PO Q6H PRN PRN Reason: Heartburn or Indigestion Amlodipine Besylate (Norvasc) 2.5 mg PO DAILY [facility] Last Admin: 05/02/17 08:36 Dose: 2.5 mg Artificial Tears (Tears Naturale) 0 drop EA EYE PRN PRN PRN Reason: Dry Eyes Benazepril HCl (Lotensin) 40 mg PO DAILY [facility] [place] Last Admin: 05/02/17 08:35 Dose: 40 mg Carbamazepine (Tegretol) 200 mg PO QID [facility] Last Admin: 05/02/17 08:36 Dose: 200 mg Clonazepam (Klonopin) 1 mg PO QID [facility] Last Admin: 05/02/17 08:36 Dose: 1 mg Famotidine (Pepcid) 20 mg SLOW IVP Q12HR [facility] Last Admin: 05/02/17 08:38 Dose: 20 mg Fluticasone Propionate (Flonase Nasal [place]) 0 gm NASAL DAILY [facility] [place] Last Admin: 05/02/17 08:37 Dose: 1 spr Guaifenesin (Robitussin Sf) 200 mg PO Q4H PRN PRN Reason: Cough Hydralazine HCl (Apresoline) 10 mg SLOW IVP Q4H PRN PRN Reason: Systolic BP > 180 Last Admin: 05/01/17 06:25 Dose: 10 mg Sodium Chloride (Normal Saline 0.9%) 1,000 mls @ 75 mls/hr IV .[id number] [facility] Last Admin: 05/01/17 20:37 Dose: 1,000 mls Ceftriaxone Sodium 2 gm/ (Sodium Chloride) 100 mls @ 200 mls/hr IVPB 2100 [facility] [place] Last Admin: 05/01/17 20:27 Dose: 100 mls Loperamide HCl (Imodium) 2 mg PO PRN PRN PRN Reason: Diarrhea/Loose Stools Loratadine/Pseudoephedrine Sulfate (Claritin-D 24 Hour) 1 tab PO DAILY [facility] [place] Last Admin: 05/02/17 08:37 Dose: 1 tab Magnesium Hydroxide (Milk Of Magnesium) 30 ml PO DAILYPRN PRN PRN Reason: Constipation Mineral Oil/White Petrolatum (Eucerin Cream) 0 gm TOP BIDPRN PRN PRN Reason: Dry Skin Morphine Sulfate (Morphine) 2 mg SLOW IVP Q4H PRN PRN Reason: Severe Pain (7-10) Last Admin: 05/02/17 08:33 Dose: 2 mg Ondansetron HCl (Zofran) 4 mg IVP Q6H PRN PRN Reason: Nausea/Vomiting Ondansetron HCl (Zofran Odt) 4 mg PO Q6H PRN PRN Reason: Nausea/Vomiting Oxycodone HCl (Oxycodone Ir) 5 mg PO Q6H PRN PRN Reason: .BREAKTHROUGH PAIN Oxycodone HCl (Oxycodone Ir) 10 mg PO Q6H PRN PRN Reason: .BREAKTHROUGH PAIN SEVERE Last Admin: 05/02/17 04:14 Dose: 10 mg Oxycodone HCl (Oxycontin) 60 mg PO Q12HR [facility] [place] Last Admin: 05/02/17 08:37 Dose: 60 mg Phenol (Chloraseptic [place] 180 Ml Bot) 0 ml PO PRN PRN PRN Reason: Sore Throat Polyethylene Glycol (Miralax) 17 gm PO DAILY [facility] [place] Last Admin: 05/02/17 08:38 Dose: 17 gm Pregabalin (Lyrica) 100 mg PO HS [facility] [place] Last Admin: 05/01/17 20:27 Dose: 100 mg Rosuvastatin Calcium (Crestor) 20 mg PO HS [facility] Last Admin: 05/01/17 20:21 Dose: 20 mg Senna (Senokot) 2 tab PO HSPRN PRN PRN Reason: Constipation Sodium Biphosphate/Sodium Phosphate (Fleet Enema) 133 ml [place] 1030 [facility] Stop: 05/02/17 12:00 Sodium Chloride ([place] Nasal [place] 0.65%) 0 ml EA NARE QIDPRN PRN PRN Reason: Nasal Congestion Temazepam (Restoril) 15 mg PO HSPRN PRN PRN Reason: Insomnia
[2017-05-02] MEDS: Sodium Chloride 0.9% 1,000 ML IV SCH ×2 (15:54→23:45)
[2017-05-02] MEDS: cefTRIAXone\\ROCEPHIN 2 GM in Sodium Chloride 0.9% 100 ML IVPB SCH (21:06)
[2017-05-02] MEDS: Pregabalin 50 MG CAP PO SCH (21:07)
[2017-05-02] MEDS: Rosuvastatin 20 MG TAB PO SCH (21:09)
[2017-05-03] MEDS: oxyCODONE 5 MG TAB PO PRN ×3 (01:37→16:14)
[2017-05-03] MEDS: Acetaminophen 325 MG TAB PO PRN (05:11)
[2017-05-03] MEDS: carBAMazepine 200 MG TAB PO SCH ×4 (08:12→21:37)
[2017-05-03] MEDS: Famotidine/PF 20 mg/2ml Vial SLOW IVP SCH ×2 (08:12→21:37)
[2017-05-03] MEDS: Loratadine/Pseudoephedrine 10/240 mg Tablet PO SCH (08:15)
[2017-05-03] MEDS: Fluticasone Propionate Nasal Spray 16 gm Bottle NASAL SCH (08:15)
[2017-05-03] MEDS: Amlodipine 5 MG TAB PO SCH (08:15)
[2017-05-03] MEDS: clonazePAM 1 MG TAB PO SCH ×4 (08:15→21:37)
[2017-05-03] MEDS: oxyCODONE ER 20 MG TAB PO SCH ×2 (08:16→21:38)
[2017-05-03] MEDS: Polyethylene Glycol 3350 17 GM Packet PO SCH (08:16)
--- NOTE | 2017-05-03 11:22 | PDOC.PN ---
- Subjective Encounter Start Date: 05/03/17 Encounter Start Time: 09:50 Patient seen and examined. No new complaints. No overnight events - Objective Resuscitation Status: Resuscitation Status FULL:Full Resuscitation MAR Reviewed: Yes Vital Signs & Weight: Vital Signs (12 hours) Temp Pulse Resp BP BP Pulse Ox 05/03/17 08:15 89 149/74 H 05/03/17 08:12 149/74 H 05/03/17 08:07 99.5 F 89 18 149/74 H 95 05/03/17 06:10 98.6 F 05/03/17 05:08 98.3 F 105 H 18 172/84 H 95 05/03/17 01:42 99.8 F H 102 H 14 163/76 H 05/03/17 00:22 98.2 F 102 H 17 170/80 H 95 Weight Weight 135 lb I&O: 05/02/17 05/03/17 05/04/17 06:59 06:59 06:59 Intake Total 3628 2014 Output Total 0 2500 Balance 1578 -485 Result Diagrams: 05/01/17 05:45 05/01/17 05:45 Phys Exam - Physical Examination Constitutional: NAD HEENT: PERRLA, moist MMs, sclera anicteric Neck: no JVD, supple Respiratory: no wheezing, no rales, no rhonchi Cardiovascular: RRR, no significant murmur, no rub Gastrointestinal: soft, non-tender, no distention, positive bowel sounds Musculoskeletal: no edema, pulses present Lymphatic: no nodes Psychiatric: normal affect, A&O x 3 Skin: no rash, normal turgor Dx/Plan (1) Hyponatremia Code(s): E87.1 - HYPO-OSMOLALITY AND HYPONATREMIA Status: Resolved (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 - NEOPLM OF UNSP BEHAV OF ENDO GLANDS AND OTH PRT NERVOUS SYS Status: Acute Comment: s/p thorecic laminectomy and tumor excision (3) Paraplegia at T9 level Code(s): G83.9 - PARALYTIC SYNDROME, UNSPECIFIED Status: Acute (4) UTI (urinary tract infection) Status: Acute (5) Chronic pain disorder Code(s): G89.4 - CHRONIC PAIN SYNDROME Status: Chronic (6) Dyslipidemia Code(s): E78.5 - HYPERLIPIDEMIA, UNSPECIFIED Status: Chronic (7) Hypertension Code(s): I10 - ESSENTIAL (PRIMARY) HYPERTENSION Status: Chronic (8) Schwannoma Code(s): D36.10 - BENIGN NEOPLASM OF PRPH NERVES AND AUTONM NERVOUS SYS, UNSP Status: Chronic - Plan cont current plan of care, plan discussed w/ family, masters catheter, continue antibiotics, 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 Review of Systems - Review of Systems Constitutional: negative: fever, chills, sweats, weakness, malaise, other Eyes: negative: Pain, Vision Change, Conjunctivae Inflammation, Eyelid Inflammation, Redness, Other ENT: negative: Ear Pain, Ear Discharge, Nose Pain, Nose Discharge, Nose Congestion, Mouth Pain, Mouth Swelling, Throat Pain, Throat Swelling, Other Respiratory: negative: Cough, Dry, Shortness of Breath, Hemoptysis, SOB with Excertion, Pleuritic Pain, Sputum, Wheezing Cardiovascular: negative: chest pain, palpitations, orthopnea, paroxysmal nocturnal dyspnea, edema, light headedness, other Gastrointestinal: negative: Nausea, Vomiting, Abdominal Pain, Diarrhea, Constipation, Melena, Hematochezia, Other Genitourinary: negative: Dysuria, Frequency, Incontinence, Hematuria, Retention , Other Musculoskeletal: Back Pain. negative: Neck Pain, Shoulder Pain, Arm Pain, Hand Pain, Leg Pain, Foot Pain, Other - Medications/Allergies Allergies/Adverse Reactions: Allergies Allergy/AdvReac Type Severity Reaction Status Date / Time No Known Drug Allergies Allergy Verified 04/29/17 16:42 Medications: Current Medications Acetaminophen (Tylenol) 650 mg [place] Q4H PRN PRN Reason: Headache/Fever or Pain Acetaminophen (Tylenol) 650 mg PO Q4H PRN PRN Reason: Headache/Fever or Mild Pain Last Admin: 05/03/17 05:11 Dose: 650 mg Hydrocodone Bitart/Acetaminophen ([place] 10/325) 1 tab PO Q4H PRN PRN Reason: Moderate Pain (4-6) Al Hydroxide/Mg Hydroxide (Maalox) 30 ml PO Q6H PRN PRN Reason: Heartburn or Indigestion Amlodipine Besylate (Norvasc) 2.5 mg PO DAILY [facility] Last Admin: 05/03/17 08:15 Dose: 2.5 mg Artificial Tears (Tears Naturale) 0 drop EA EYE PRN PRN PRN Reason: Dry Eyes Benazepril HCl (Lotensin) 40 mg PO DAILY [facility] Last Admin: 05/03/17 08:12 Dose: 40 mg Carbamazepine (Tegretol) 200 mg PO QID [facility] Last Admin: 05/03/17 08:12 Dose: 200 mg Clonazepam (Klonopin) 1 mg PO QID [facility] 234 [facility]S [facility] Last Admin: 05/03/17 08:15 Dose: 1 mg Famotidine (Pepcid) 20 mg SLOW IVP Q12HR [facility] 234 [facility]S [facility] Last Admin: 05/03/17 08:12 Dose: 20 mg Fluticasone Propionate (Flonase Nasal [place]) 0 gm NASAL DAILY [facility] 234 [facility]S [facility] Last Admin: 05/03/17 08:15 Dose: 1 spr Guaifenesin (Robitussin Sf) 200 mg PO Q4H PRN PRN Reason: Cough Hydralazine HCl (Apresoline) 10 mg SLOW IVP Q4H PRN PRN Reason: Systolic BP > 180 Last Admin: 05/01/17 06:25 Dose: 10 mg Sodium Chloride (Normal Saline 0.9%) 1,000 mls @ 75 mls/hr IV .[id number] [facility]S [facility] 234 BEDS AT [facility] Last Admin: 05/02/17 23:45 Dose: Not Given Ceftriaxone Sodium 2 gm/ (Sodium Chloride) 100 mls @ 200 mls/hr IVPB 2100 [facility] 234 [facility]S [facility] Last Admin: 05/02/17 21:06 Dose: 100 mls Loperamide HCl (Imodium) 2 mg PO PRN PRN PRN Reason: Diarrhea/Loose Stools Loratadine/Pseudoephedrine Sulfate (Claritin-D 24 Hour) 1 tab PO DAILY [facility] 234 [facility]S [facility] Last Admin: 05/03/17 08:15 Dose: 1 tab Magnesium Hydroxide (Milk Of Magnesium) 30 ml PO DAILYPRN PRN PRN Reason: Constipation Mineral Oil/White Petrolatum (Eucerin Cream) 0 gm TOP BIDPRN PRN PRN Reason: Dry Skin Morphine Sulfate (Morphine) 2 mg SLOW IVP Q4H PRN PRN Reason: Severe Pain (7-10) Last Admin: 05/03/17 10:15 Dose: 2 mg Ondansetron HCl (Zofran) 4 mg IVP Q6H PRN PRN Reason: Nausea/Vomiting Ondansetron HCl (Zofran Odt) 4 mg PO Q6H PRN PRN Reason: Nausea/Vomiting Oxycodone HCl (Oxycodone Ir) 5 mg PO Q6H PRN PRN Reason: .BREAKTHROUGH PAIN Oxycodone HCl (Oxycodone Ir) 10 mg PO Q6H PRN PRN Reason: .BREAKTHROUGH PAIN SEVERE Last Admin: 05/03/17 10:08 Dose: 10 mg Oxycodone HCl (Oxycontin) 60 mg PO Q12HR [facility] 234 [facility]S [facility] Last Admin: 05/03/17 08:16 Dose: 60 mg Phenol (Chloraseptic [place] 180 Ml Bot) 0 ml PO PRN PRN PRN Reason: Sore Throat Polyethylene Glycol (Miralax) 17 gm PO DAILY [facility] 234 [facility]S [facility] Last Admin: 05/03/17 08:16 Dose: 17 gm Pregabalin (Lyrica) 100 mg PO [facility] Last Admin: 05/02/17 21:07 Dose: 100 mg Rosuvastatin Calcium (Crestor) 20 mg PO [facility] Last Admin: 05/02/17 21:09 Dose: 20 mg Senna (Senokot) 2 tab PO HSPRN PRN PRN Reason: Constipation Sodium Chloride ([place] Nasal [place] 0.65%) 0 ml EA NARE QIDPRN PRN PRN Reason: Nasal Congestion Temazepam (Restoril) 15 mg PO HSPRN PRN PRN Reason: Insomnia
[2017-05-03] MEDS: Sodium Chloride 0.9% 1,000 ML IV SCH (16:05)
[2017-05-03] MEDS ORDERED: Magnesium Citrate 300 ML BOT PO SCH (17:45)
[2017-05-03] MEDS: cefTRIAXone\\ROCEPHIN 2 GM in Sodium Chloride 0.9% 100 ML IVPB SCH (21:37)
[2017-05-03] MEDS: Pregabalin 50 MG CAP PO SCH (21:38)
[2017-05-03] MEDS: Rosuvastatin 20 MG TAB PO SCH (21:39)
[2017-05-04] MEDS: Sodium Chloride 0.9% 1,000 ML IV SCH ×2 (05:42→23:52)
[2017-05-04] MEDS: oxyCODONE 5 MG TAB PO PRN ×3 (05:45→19:42)
[2017-05-04] MEDS: oxyCODONE ER 20 MG TAB PO SCH ×2 (09:05→22:43)
[2017-05-04] MEDS: carBAMazepine 200 MG TAB PO SCH ×4 (09:05→22:48)
[2017-05-04] MEDS: Amlodipine 5 MG TAB PO SCH (09:06)
[2017-05-04] MEDS: Loratadine/Pseudoephedrine 10/240 mg Tablet PO SCH (09:06)
[2017-05-04] MEDS: clonazePAM 1 MG TAB PO SCH ×4 (09:06→22:47)
[2017-05-04] MEDS: Famotidine/PF 20 mg/2ml Vial SLOW IVP SCH ×2 (09:07→22:46)
[2017-05-04] MEDS: Polyethylene Glycol 3350 17 GM Packet PO SCH (09:07)
[2017-05-04] MEDS ORDERED: Fleet Enema 133 ML BOT PR SCH (10:00)
[2017-05-04] MEDS: Fluticasone Propionate Nasal Spray 16 gm Bottle NASAL SCH ×2 (10:22→23:53)
--- NOTE | 2017-05-04 12:23 | EKG ---
Test Reason : Blood Pressure : / mmHG Vent. Rate : 083 BPM Atrial Rate : 083 BPM P-R Int : 174 ms QRS Dur : 084 ms QT Int : 360 ms P-R-T Axes : 067 060 067 degrees QTc Int : 423 ms Normal sinus rhythm Possible Left atrial enlargement Borderline ECG Confirmed by DEBRA ROWELL M.D. ([id number]), news editor GIULIANA MUNOZ ([id number]) on 05/04/2017 12:23:00 PM Referred By: Confirmed By:DEBRA ROWELL M.D.
--- NOTE | 2017-05-04 12:35 | PDOC.PN ---
- Subjective Encounter Start Date: 05/04/17 Encounter Start Time: 08:20 c/o nasal congestion, no fever, pain is better today Patient seen and examined. No overnight events she is not able to move right leg - Objective Resuscitation Status: Resuscitation Status FULL:Full Resuscitation MAR Reviewed: Yes Vital Signs & Weight: Vital Signs (12 hours) Temp Pulse Resp BP BP Pulse Ox 05/04/17 11:48 98.9 F 98 18 123/73 95 05/04/17 09:06 91 121/65 05/04/17 09:04 121/65 05/04/17 08:00 98.9 F 91 17 121/65 93 L 05/04/17 04:00 98.9 F 88 18 135/69 94 L Weight Weight 135 lb I&O: 05/03/17 05/04/17 05/05/17 06:59 06:59 06:59 Intake Total 2014 1919 Output Total 2500 2450 Balance -485 -530 Result Diagrams: 05/01/17 05:45 05/01/17 05:45 Phys Exam - Physical Examination Constitutional: NAD HEENT: PERRLA, moist MMs, sclera anicteric Neck: no JVD, supple Respiratory: no wheezing, no rales, no rhonchi Cardiovascular: RRR, no significant murmur, no rub Gastrointestinal: soft, non-tender, no distention, positive bowel sounds Musculoskeletal: no edema, pulses present uanble to move right leg Psychiatric: normal affect, A&O x 3 Skin: no rash, normal turgor Dx/Plan (1) Hyponatremia Code(s): E87.1 - HYPO-OSMOLALITY AND HYPONATREMIA Status: Resolved (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 - NEOPLM OF UNSP BEHAV OF ENDO GLANDS AND OTH PRT NERVOUS SYS Status: Acute Comment: s/p thorecic laminectomy and tumor excision (3) Paraplegia at T9 level Code(s): G83.9 - PARALYTIC SYNDROME, UNSPECIFIED Status: Acute (4) UTI (urinary tract infection) Status: Acute (5) Chronic pain disorder Code(s): G89.4 - CHRONIC PAIN SYNDROME Status: Chronic (6) Dyslipidemia Code(s): E78.5 - HYPERLIPIDEMIA, UNSPECIFIED Status: Chronic (7) Hypertension Code(s): I10 - ESSENTIAL (PRIMARY) HYPERTENSION Status: Chronic (8) Schwannoma Code(s): D36.10 - BENIGN NEOPLASM OF PRPH NERVES AND AUTONM NERVOUS SYS, UNSP Status: Chronic - Plan cont current plan of care, plan discussed w/ family, 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 Review of Systems - Review of Systems ENT: Nose Congestion. negative: Ear Pain, Ear Discharge, Nose Pain, Nose Discharge, Mouth Pain, Mouth Swelling, Throat Pain, Throat Swelling, Other Respiratory: negative: Cough, Dry, Shortness of Breath, Hemoptysis, SOB with Excertion, Pleuritic Pain, Sputum, Wheezing Cardiovascular: negative: chest pain, palpitations, orthopnea, paroxysmal nocturnal dyspnea, edema, light headedness, other Gastrointestinal: Constipation. negative: Nausea, Vomiting, Abdominal Pain, Diarrhea, Melena, Hematochezia, Other Genitourinary: negative: Dysuria, Frequency, Incontinence, Hematuria, Retention , Other Musculoskeletal: Back Pain. negative: Neck Pain, Shoulder Pain, Arm Pain, Hand Pain, Leg Pain, Foot Pain, Other Skin: negative: Rash, Lesions, Adriel, Bruising, Other Neurological: Weakness. negative: Numbness, Incoordination, Change in Speech, Confusion, Seizures, Other - Medications/Allergies Allergies/Adverse Reactions: Allergies Allergy/AdvReac Type Severity Reaction Status Date / Time No Known Drug Allergies Allergy Verified 04/29/17 16:42 Medications: Current Medications Acetaminophen (Tylenol) 650 mg VT Q4H PRN PRN Reason: Headache/Fever or Pain Acetaminophen (Tylenol) 650 mg PO Q4H PRN PRN Reason: Headache/Fever or Mild Pain Last Admin: 05/03/17 05:11 Dose: 650 mg Hydrocodone Bitart/Acetaminophen ([place] 10/325) 1 tab PO Q4H PRN PRN Reason: Moderate Pain (4-6) Al Hydroxide/Mg Hydroxide (Maalox) 30 ml PO Q6H PRN PRN Reason: Heartburn or Indigestion Amlodipine Besylate (Norvasc) 2.5 mg PO DAILY [facility] Last Admin: 05/04/17 09:06 Dose: 2.5 mg Artificial Tears (Tears Naturale) 0 drop EA EYE PRN PRN PRN Reason: Dry Eyes Benazepril HCl (Lotensin) 40 mg PO DAILY [facility] Last Admin: 05/04/17 09:04 Dose: 40 mg Carbamazepine (Tegretol) 200 mg PO QID [facility] Last Admin: 05/04/17 09:05 Dose: 200 mg Clonazepam (Klonopin) 1 mg PO QID [facility] Last Admin: 05/04/17 09:06 Dose: 1 mg Famotidine (Pepcid) 20 mg SLOW IVP Q12HR [facility] Last Admin: 05/04/17 09:07 Dose: 20 mg Fluticasone Propionate (Flonase Nasal [place]) 0 gm NASAL DAILY [facility] Last Admin: 05/04/17 10:22 Dose: 1 spr Guaifenesin (Robitussin Sf) 200 mg PO Q4H PRN PRN Reason: Cough Hydralazine HCl (Apresoline) 10 mg SLOW IVP Q4H PRN PRN Reason: Systolic BP > 180 Last Admin: 05/01/17 06:25 Dose: 10 mg Sodium Chloride (Normal Saline 0.9%) 1,000 mls @ 75 mls/hr IV .[id number] [facility] Last Admin: 05/04/17 05:42 Dose: Not Given Ceftriaxone Sodium 2 gm/ (Sodium Chloride) 100 mls @ 200 mls/hr IVPB 2100 [facility] Last Admin: 05/03/17 21:37 Dose: 100 mls Loperamide HCl (Imodium) 2 mg PO PRN PRN PRN Reason: Diarrhea/Loose Stools Loratadine/Pseudoephedrine Sulfate (Claritin-D 24 Hour) 1 tab PO DAILY [facility] Last Admin: 05/04/17 09:06 Dose: 1 tab Magnesium Hydroxide (Milk Of Magnesium) 30 ml PO DAILYPRN PRN PRN Reason: Constipation Mineral Oil/White Petrolatum (Eucerin Cream) 0 gm TOP BIDPRN PRN PRN Reason: Dry Skin Morphine Sulfate (Morphine) 2 mg SLOW IVP Q4H PRN PRN Reason: Severe Pain (7-10) Last Admin: 05/04/17 10:47 Dose: 2 mg Ondansetron HCl (Zofran) 4 mg IVP Q6H PRN PRN Reason: Nausea/Vomiting Ondansetron HCl (Zofran Odt) 4 mg PO Q6H PRN PRN Reason: Nausea/Vomiting Oxycodone HCl (Oxycodone Ir) 5 mg PO Q6H PRN PRN Reason: .BREAKTHROUGH PAIN Oxycodone HCl (Oxycodone Ir) 10 mg PO Q6H PRN PRN Reason: .BREAKTHROUGH PAIN SEVERE Last Admin: 05/04/17 11:33 Dose: 10 mg Oxycodone HCl (Oxycontin) 60 mg PO Q12HR [facility] Last Admin: 05/04/17 09:05 Dose: 60 mg Phenol (Chloraseptic [place] 180 Ml Bot) 0 ml PO PRN PRN PRN Reason: Sore Throat Polyethylene Glycol (Miralax) 17 gm PO DAILY [facility] Last Admin: 05/04/17 09:07 Dose: 17 gm Pregabalin (Lyrica) 100 mg PO HS [facility] Last Admin: 05/03/17 21:38 Dose: 100 mg Rosuvastatin Calcium (Crestor) 20 mg PO HS [facility] Last Admin: 05/03/17 21:39 Dose: 20 mg Senna (Senokot) 2 tab PO HSPRN PRN PRN Reason: Constipation Sodium Chloride ([place] Nasal [place] 0.65%) 0 ml EA NARE QIDPRN PRN PRN Reason: Nasal Congestion Temazepam (Restoril) 15 mg PO HSPRN PRN PRN Reason: Insomnia
--- NOTE | 2017-05-04 16:36 | ULT ---
BILATERAL LOWER EXTREMITY VENOUS ULTRASOUND 05/04/17 COMPARISON: None. HISTORY: Limited movement from multiple schwannomas throughout the body. Bilateral lower extremity edema. TECHNIQUE: Multiplanar davies scale and color doppler images were obtained in the bilateral lower extremity venous ultrasound. Spectral analysis of the doppler waveforms were performed. FINDINGS: The bilateral common femoral veins, profunda femoral veins, superficial femoral veins and popliteal v eins are normal in appearance without visible thrombus. These vessels demonstrate normal compression, flow and augmentation. The posterior tibial veins and greater saphenous veins are also patent. Poste rior to the right knee, there is a multilobulated cystic structure measuring 4.4 cm in greatest dimen michael which likely represents a Lindsay's cyst. In the left medial thigh, there is a lobulated well circ umscribed mass measuring 5.8 cm in greatest dimension. This could represent a schwannoma or neurofibr raul. IMPRESSION: 1. No evidence of DVT. 2. Right Lindsay's cyst. 3. Left thigh mass may represent a neurofibroma or schwannoma. POS: YESENIA
[2017-05-04] MEDS: Rosuvastatin 20 MG TAB PO SCH (22:47)
[2017-05-04] MEDS: Pregabalin 50 MG CAP PO SCH (22:47)
[2017-05-04] MEDS: cefTRIAXone\\ROCEPHIN 2 GM in Sodium Chloride 0.9% 100 ML IVPB SCH (23:06)
[2017-05-05] MEDS: oxyCODONE 5 MG TAB PO PRN ×4 (00:28→17:08)
[2017-05-05] MEDS: clonazePAM 1 MG TAB PO SCH ×4 (08:46→20:33)
[2017-05-05] MEDS: carBAMazepine 200 MG TAB PO SCH ×4 (08:46→20:32)
[2017-05-05] MEDS: Famotidine/PF 20 mg/2ml Vial SLOW IVP SCH ×2 (08:46→20:35)
[2017-05-05] MEDS: Amlodipine 5 MG TAB PO SCH (08:47)
[2017-05-05] MEDS: oxyCODONE ER 20 MG TAB PO SCH ×2 (08:49→20:33)
[2017-05-05] MEDS: Polyethylene Glycol 3350 17 GM Packet PO SCH (08:49)
[2017-05-05] MEDS: Loratadine/Pseudoephedrine 10/240 mg Tablet PO SCH (08:54)
[2017-05-05] MEDS: Fluticasone Propionate Nasal Spray 16 gm Bottle NASAL SCH ×2 (08:54→20:34)
--- NOTE | 2017-05-05 10:51 | PDOC.PN ---
- Subjective Encounter Start Date: 05/05/17 Encounter Start Time: 07:40 last night pt was not able to void, so required masters, no fever - Objective Resuscitation Status: Resuscitation Status FULL:Full Resuscitation MAR Reviewed: Yes Vital Signs & Weight: Vital Signs (12 hours) Temp Pulse Resp BP BP Pulse Ox 05/05/17 08:47 93 125/73 05/05/17 08:00 98.0 F 93 14 125/73 94 L 05/05/17 04:00 99.1 F 93 16 129/69 94 L 05/05/17 00:00 98.2 F 98 16 128/70 96 Weight Admit Weight 135 lb Weight 135 lb I&O: 05/04/17 05/05/17 05/06/17 06:59 06:59 06:59 Intake Total 1920 570 Output Total 2450 1950 750 Balance -530 -1380 -750 Result Diagrams: 05/01/17 05:45 05/01/17 05:45 Radiology Reviewed by me: Yes (US leg) Phys Exam - Physical Examination Constitutional: NAD HEENT: PERRLA, moist MMs, sclera anicteric Neck: no JVD, supple Respiratory: no wheezing, no rales, no rhonchi Cardiovascular: RRR, no significant murmur, no rub Gastrointestinal: soft, non-tender, no distention, positive bowel sounds paraplegia Psychiatric: normal affect, A&O x 3 Skin: no rash, normal turgor Dx/Plan (1) Hyponatremia Code(s): E87.1 - HYPO-OSMOLALITY AND HYPONATREMIA Status: Resolved (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 - NEOPLM OF UNSP BEHAV OF ENDO GLANDS AND OTH PRT NERVOUS SYS Status: Acute Comment: s/p thorecic laminectomy and tumor excision (3) Paraplegia at T9 level Code(s): G83.9 - PARALYTIC SYNDROME, UNSPECIFIED Status: Acute (4) UTI (urinary tract infection) Status: Acute (5) Chronic pain disorder Code(s): G89.4 - CHRONIC PAIN SYNDROME Status: Chronic (6) Dyslipidemia Code(s): E78.5 - HYPERLIPIDEMIA, UNSPECIFIED Status: Chronic (7) Hypertension Code(s): I10 - ESSENTIAL (PRIMARY) HYPERTENSION Status: Chronic (8) Schwannoma Code(s): D36.10 - BENIGN NEOPLASM OF PRPH NERVES AND AUTONM NERVOUS SYS, UNSP Status: Chronic (9) Mass of left thigh Code(s): R22.42 - LOCALIZED SWELLING, MASS AND LUMP, LEFT LOWER LIMB Status: Acute (10) Urinary retention with incomplete bladder emptying Code(s): R33.9 - RETENTION OF URINE, UNSPECIFIED Status: Acute - Plan cont current plan of care, plan discussed w/ family, continue antibiotics, 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 Review of Systems - Review of Systems Constitutional: negative: fever, chills, sweats, weakness, malaise, other Eyes: negative: Pain, Vision Change, Conjunctivae Inflammation, Eyelid Inflammation, Redness, Other ENT: negative: Ear Pain, Ear Discharge, Nose Pain, Nose Discharge, Nose Congestion, Mouth Pain, Mouth Swelling, Throat Pain, Throat Swelling, Other Respiratory: negative: Cough, Dry, Shortness of Breath, Hemoptysis, SOB with Excertion, Pleuritic Pain, Sputum, Wheezing Cardiovascular: negative: chest pain, palpitations, orthopnea, paroxysmal nocturnal dyspnea, edema, light headedness, other Gastrointestinal: negative: Nausea, Vomiting, Abdominal Pain, Diarrhea, Constipation, Melena, Hematochezia, Other Genitourinary: Retention. negative: Dysuria, Frequency, Incontinence, Hematuria , Other Musculoskeletal: negative: Neck Pain, Shoulder Pain, Arm Pain, Back Pain, Hand Pain, Leg Pain, Foot Pain, Other Skin: negative: Rash, Lesions, Adriel, Bruising, Other - Medications/Allergies Allergies/Adverse Reactions: Allergies Allergy/AdvReac Type Severity Reaction Status Date / Time No Known Drug Allergies Allergy Verified 04/29/17 16:42 Medications: Current Medications Acetaminophen (Tylenol) 650 mg [place] Q4H PRN PRN Reason: Headache/Fever or Pain Acetaminophen (Tylenol) 650 mg PO Q4H PRN PRN Reason: Headache/Fever or Mild Pain Last Admin: 05/03/17 05:11 Dose: 650 mg Hydrocodone Bitart/Acetaminophen ([place] 10/325) 1 tab PO Q4H PRN PRN Reason: Moderate Pain (4-6) Al Hydroxide/Mg Hydroxide (Maalox) 30 ml PO Q6H PRN PRN Reason: Heartburn or Indigestion Amlodipine Besylate (Norvasc) 2.5 mg PO DAILY [facility] Last Admin: 05/05/17 08:47 Dose: 2.5 mg Artificial Tears (Tears Naturale) 0 drop EA EYE PRN PRN PRN Reason: Dry Eyes Benazepril HCl (Lotensin) 40 mg PO DAILY [facility] Last Admin: 05/05/17 08:47 Dose: 40 mg Carbamazepine (Tegretol) 200 mg PO QID [facility] Last Admin: 05/05/17 08:46 Dose: 200 mg Clonazepam (Klonopin) 1 mg PO QID [facility] Last Admin: 05/05/17 08:46 Dose: 1 mg Famotidine (Pepcid) 20 mg SLOW IVP Q12HR [facility] Last Admin: 05/05/17 08:46 Dose: 20 mg Fluticasone Propionate (Flonase Nasal [place]) 0 gm NASAL BID [facility] Last Admin: 05/05/17 08:54 Dose: 1 spr Guaifenesin (Robitussin Sf) 200 mg PO Q4H PRN PRN Reason: Cough Hydralazine HCl (Apresoline) 10 mg SLOW IVP Q4H PRN PRN Reason: Systolic BP > 180 Last Admin: 05/01/17 06:25 Dose: 10 mg Sodium Chloride (Normal Saline 0.9%) 1,000 mls @ 75 mls/hr IV .[id number] [facility] Last Admin: 05/04/17 23:52 Dose: 1,000 mls Ceftriaxone Sodium 2 gm/ (Sodium Chloride) 100 mls @ 200 mls/hr IVPB 2100 [facility] Last Admin: 05/04/17 23:06 Dose: 100 mls Loperamide HCl (Imodium) 2 mg PO PRN PRN PRN Reason: Diarrhea/Loose Stools Loratadine/Pseudoephedrine Sulfate (Claritin-D 24 Hour) 1 tab PO DAILY [facility] Last Admin: 05/05/17 08:54 Dose: 1 tab Magnesium Hydroxide (Milk Of Magnesium) 30 ml PO DAILYPRN PRN PRN Reason: Constipation Mineral Oil/White Petrolatum (Eucerin Cream) 0 gm TOP BIDPRN PRN PRN Reason: Dry Skin Morphine Sulfate (Morphine) 2 mg SLOW IVP Q4H PRN PRN Reason: Severe Pain (7-10) Last Admin: 05/05/17 08:53 Dose: 2 mg Ondansetron HCl (Zofran) 4 mg IVP Q6H PRN PRN Reason: Nausea/Vomiting Ondansetron HCl (Zofran Odt) 4 mg PO Q6H PRN PRN Reason: Nausea/Vomiting Oxycodone HCl (Oxycodone Ir) 5 mg PO Q6H PRN PRN Reason: .BREAKTHROUGH PAIN Oxycodone HCl (Oxycodone Ir) 10 mg PO Q6H PRN PRN Reason: .BREAKTHROUGH PAIN SEVERE Last Admin: 05/05/17 05:52 Dose: 10 mg Oxycodone HCl (Oxycontin) 60 mg PO Q12HR [facility] Last Admin: 05/05/17 08:49 Dose: 60 mg Phenol (Chloraseptic [place] 180 Ml Bot) 0 ml PO PRN PRN PRN Reason: Sore Throat Polyethylene Glycol (Miralax) 17 gm PO DAILY [facility] Last Admin: 05/05/17 08:49 Dose: 17 gm Pregabalin (Lyrica) 100 mg PO HS [facility] Last Admin: 05/04/17 22:47 Dose: 100 mg Rosuvastatin Calcium (Crestor) 20 mg PO HS [facility] Last Admin: 05/04/17 22:47 Dose: 20 mg Senna (Senokot) 2 tab PO HSPRN PRN PRN Reason: Constipation Sodium Chloride ([place] Nasal [place] 0.65%) 0 ml EA NARE QIDPRN PRN PRN Reason: Nasal Congestion Temazepam (Restoril) 15 mg PO HSPRN PRN PRN Reason: Insomnia
[2017-05-05] MEDS: Sodium Chloride 0.9% 1,000 ML IV SCH ×2 (14:02→22:24)
--- NOTE | 2017-05-05 19:46 | CON ---
DATE OF CONSULTATION: 05/05/2017 DATE OF ADMISSION: 04/29/2017 REASON FOR CONSULTATION: 1. Urinary retention. 2. Status post T5-T7 thoracic laminectomy with excision of intradural extramedullary tumor. PROBLEM LIST: Postoperative urinary retention, N99.89, R33.8 Schwannomatosis (HCC), Q85.03 Constipation, K59.00 HISTORY OF PRESENT ILLNESS: Ms. Reyna Moffett is a very pleasant 61-year-old white female with a long-term history of schwannomas. The patient has a schwannoma on her right lower extremity and had multiple schwannoma excisions. She was admitted on this hospital admission with development of acute onset of paralysis of the bilateral lower extremities. The patient also had simultaneous development of constipation and urinary retention. The patient experienced approximately 2 to 3 weeks' worth of obstructive voiding symptoms in association with constipation. She reports that she was having to press on her lower abdomen in order to void prior to hospital admission. Ms. Moffett is adapted to the fact that she has schwannomas and is having to suffer the neurologic consequences of them, but her bilateral lower extremity weakness and paralysis in the lower extremities is a new and upsetting feature for her. The patient's urologic history does not include a significant number of recent urinary tract infections, but she does report having had a lot of those in the past. The patient is postmenopausal for about 8 years. She is not on hormonal replacement therapy. Bowel function novak the patient does report chronic issues with constipation and has been on MiraLax daily for over a year and has recently over the last 3 months or so required milk of magnesia in addition to the MiraLax in order to have a bowel movement. At present, it has been more than 2 weeks since she has had a bowel movement. The patient had an indwelling Moya catheter following her operation on her back to remove a T6 level tumor, which was involving the right T6 neural foramen and distorting the spinal cord in the area. The patient underwent her operative procedure on 05/01/2017, and postoperatively has not been able to void on her own. This is not really a change from her preoperative status. PAST MEDICAL HISTORY: 1. Schwannomatosis. 2. Hypertension. 3. Hyperlipidemia. PAST SURGICAL HISTORY: 1. Schwannoma excision in left wrist. 2. Right sciatic nerve and left cranial nerve. SOCIAL HISTORY: The patient is and resides at home. 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 Patient is a nonsmoker and nondrinker. ALLERGIES: No known drug allergies. COMPLETE MEDICATION LIST: Includes the followin. Tylenol. 2. [place] 10/325. 3. Maalox. 4. Norvasc 2.5 mg p.o. daily. 5. Lotensin 40 mg p.o. daily. 6. Dulcolax 10 mg p.o. q.a.m. 7. Tegretol 200 mg p.o. q.i.d. 8. Ceftriaxone 2 grams in saline. 9. Clonazepam 1 mg p.o. q.i.d. 10. Pepcid 20 mg q.12 hours. 11. Fluticasone proprionate nasal spray. 12. Guaifenesin 200 mg p.o. q.6 hours p.r.n. 13. Hydralazine 10 mg slow IVP for blood pressure greater than 180. 14. Imodium 2 mg p.o. p.r.n. diarrhea. 15. Morphine sulfate 2 mg slow IVP for severe pain. 16. Zofran 4 mg q.6 hours p.r.n. nausea and vomiting. 17. Oxycodone 5 mg p.o. q.6 h. immediate release formulation. 18. Oxycodone 60 mg p.o. q.12 hours. 19. MiraLax 17 grams p.o. daily. 20. Lyrica 100 mg p.o. at bedtime. 21. Crestor 20 mg per day. 22. Senokot 2 tablets p.r.n. constipation. 23. Restoril 15 mg p.o. p.r.n. insomnia. PHYSICAL EXAMINATION: GENERAL: This is a pleasant, elderly white female, a relatively frail built, evaluated lying on her right side due to the presence of a left back surgical incisional site, which is dressed at present. VITAL SIGNS: The patient is afebrile with temperature of 98.5, pulse 92, respirations 14, O2 saturation 93% on room air, blood pressure is 106/66. NEUROLOGIC: The patient is awake, alert, and GCS is 15. Extraocular movements are not intact with deviation of the patient's left laterally. The facial musculature appears to be intact. The upper extremities strength is 4/5 in all muscle groups. Lower extremities, patient has some weakness of the right and left leg. She has particular weakness of the extensors of the right lower extremity. LUNGS: Clear to auscultation bilaterally. CARDIAC: Regular rate and rhythm without murmur, rub, or gallop. ABDOMEN: Distended. Percussion of the abdomen reveals the presence of increased resonance in all 4 quadrants consistent with a current ileus and/or obstruction. There is no suprapubic tenderness. PELVIC EXAMINATION: The patient has a Moya catheter in place. Pelvic exam finds a periurethral pallor, beefy red coloration to the urethral meatus itself consistent with low estrogen status. DIGITAL RECTAL EXAMINATION: Not performed. LABORATORY STUDIES: White count is 9,400. There is moderate left shift with 83.3% neutrophils on 05/01/2017. Serum chemistries show the patient has blood urea nitrogen of 8 with a creatinine of 0.70. ASSESSMENT AND PLAN: 1. Urinary retention. This was a preoperative issue for the patient at presentation in the emergency department and was not associated with surgery. The patient has had some improvement in her bilateral lower extremity movement and this gives us hope for her urologic function over time. At the present time , low lying fruit would be optimization of the patient's urinary function, which would include management of her current constipation, which can be contributed to outlet obstruction in the urinary tract. In addition, the patient is found to have relatively significant postmenopausal vaginal changes consistent with low estrogen status. We are recommending starting her on both a bowel program and topical Estrace cream applied to the urethra on a nightly basis. The patient will also be instructed in clean intermittent catheterization. I discussed with the patient there is a possibility that she may require clean intermittent catheterization for life. The patient should catheterize at least 5 times per day, certainly at bedtime and when she gets up in the morning and at noon. The patient should catheterize an additional 2 times during the day in any other time that she feels that she is distended. 2. Constipation. The patient should be placed on a bowel program with a combination of digital stimulation and Dulcolax suppository application every morning for the next 5 days, needs to establish a normal bowel function, if necessary later she can be converted to glycerin suppositories or other methods to allow proper fecal emptying. At the present time, the patient is definitely constipated and this is probably a contributor to at least in part to her current urinary retention episode. The patient probably will need to continue her intermittent catheterization indefinitely and my office will be happy to set up prescriptions for that. FOLLOWUP: The patient may follow up in my office at [facility] for further evaluation and assessment. This is required every 6 months for as long as she is requiring intermittent catheterization supplies. Over 70 minutes of initial evaluation and assessment time was spent in evaluation and assessment of this patient , over of which was in face to face evaluation or in coordination of care, or communication with the patient's family regarding care, exclusive of any procedures performed, [id number]. MTDD
[2017-05-05] MEDS: Rosuvastatin 20 MG TAB PO SCH (20:32)
[2017-05-05] MEDS: Pregabalin 50 MG CAP PO SCH (20:33)
[2017-05-05] MEDS: Estradiol 0.01% Vaginal Cream 42.5 gm Tube VAG SCH (20:35)
[2017-05-05] MEDS: cefTRIAXone\\ROCEPHIN 2 GM in Sodium Chloride 0.9% 100 ML IVPB SCH (20:36)
[2017-05-06] MEDS: oxyCODONE 5 MG TAB PO PRN ×3 (03:42→17:27)
[2017-05-06] MEDS: HYDROcodone/Acetaminophen 10/325 mg Tablet PO PRN ×2 (04:56→13:22)
[2017-05-06] MEDS: oxyCODONE ER 20 MG TAB PO SCH ×2 (08:34→21:15)
[2017-05-06] MEDS: Amlodipine 5 MG TAB PO SCH (08:35)
[2017-05-06] MEDS: Loratadine/Pseudoephedrine 10/240 mg Tablet PO SCH (08:36)
[2017-05-06] MEDS: clonazePAM 1 MG TAB PO SCH ×4 (08:36→23:01)
[2017-05-06] MEDS: carBAMazepine 200 MG TAB PO SCH ×4 (08:36→23:01)
[2017-05-06] MEDS: Fluticasone Propionate Nasal Spray 16 gm Bottle NASAL SCH ×2 (08:36→21:18)
[2017-05-06] MEDS: Polyethylene Glycol 3350 17 GM Packet PO SCH (08:37)
[2017-05-06] MEDS: Famotidine/PF 20 mg/2ml Vial SLOW IVP SCH ×2 (08:37→21:17)
[2017-05-06] MEDS: Bisacodyl 10 MG SUPP PR SCH (08:38)
--- NOTE | 2017-05-06 11:31 | PDOC.PN ---
- Subjective Encounter Start Date: 05/06/17 Encounter Start Time: 07:30 Patient seen and examined. No new complaints. No overnight events - Objective Resuscitation Status: Resuscitation Status FULL:Full Resuscitation MAR Reviewed: Yes Vital Signs & Weight: Vital Signs (12 hours) Temp Pulse Resp BP BP Pulse Ox 05/06/17 08:35 140/75 05/06/17 08:33 140/75 05/06/17 08:00 99.6 F 78 20 140/75 97 05/06/17 03:49 98.9 F 80 16 119/66 95 Weight Admit Weight 135 lb Weight 135 lb I&O: 05/05/17 05/06/17 05/07/17 06:59 06:59 06:59 Intake Total 570 960 Output Total 1950 5818 Balance -8971 -4248 Result Diagrams: 05/01/17 05:45 05/01/17 05:45 Phys Exam - Physical Examination Constitutional: NAD HEENT: PERRLA, moist MMs, sclera anicteric Neck: no JVD, supple Respiratory: no wheezing, no rales, no rhonchi Cardiovascular: RRR, no significant murmur, no rub Gastrointestinal: soft, non-tender, no distention, positive bowel sounds Musculoskeletal: no edema, pulses present paraplegia Lymphatic: no nodes Psychiatric: normal affect Skin: no rash, normal turgor Dx/Plan (1) Hyponatremia Code(s): E87.1 - HYPO-OSMOLALITY AND HYPONATREMIA Status: Resolved (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 - NEOPLM OF UNSP BEHAV OF ENDO GLANDS AND OTH PRT NERVOUS SYS Status: Acute Comment: s/p thorecic laminectomy and tumor excision (3) Paraplegia at T9 level Code(s): G83.9 - PARALYTIC SYNDROME, UNSPECIFIED Status: Acute (4) UTI (urinary tract infection) Status: Acute (5) Chronic pain disorder Code(s): G89.4 - CHRONIC PAIN SYNDROME Status: Chronic (6) Dyslipidemia Code(s): E78.5 - HYPERLIPIDEMIA, UNSPECIFIED Status: Chronic (7) Hypertension Code(s): I10 - ESSENTIAL (PRIMARY) HYPERTENSION Status: Chronic (8) Schwannoma Code(s): D36.10 - BENIGN NEOPLASM OF PRPH NERVES AND AUTONM NERVOUS SYS, UNSP Status: Chronic (9) Mass of left thigh Code(s): R22.42 - LOCALIZED SWELLING, MASS AND LUMP, LEFT LOWER LIMB Status: Acute (10) Urinary retention with incomplete bladder emptying Code(s): R33.9 - RETENTION OF URINE, UNSPECIFIED Status: Acute - Plan cont current plan of care, plan discussed w/ family, continue antibiotics, 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 * high risk for readmission Review of Systems - Review of Systems Constitutional: negative: fever, chills, sweats, weakness, malaise, other Eyes: negative: Pain, Vision Change, Conjunctivae Inflammation, Eyelid Inflammation, Redness, Other ENT: negative: Ear Pain, Ear Discharge, Nose Pain, Nose Discharge, Nose Congestion, Mouth Pain, Mouth Swelling, Throat Pain, Throat Swelling, Other Respiratory: negative: Cough, Dry, Shortness of Breath, Hemoptysis, SOB with Excertion, Pleuritic Pain, Sputum, Wheezing Cardiovascular: negative: chest pain, palpitations, orthopnea, paroxysmal nocturnal dyspnea, edema, light headedness, other Gastrointestinal: negative: Nausea, Vomiting, Abdominal Pain, Diarrhea, Constipation, Melena, Hematochezia, Other Genitourinary: Retention. negative: Dysuria, Frequency, Incontinence, Hematuria , Other Musculoskeletal: Back Pain. negative: Neck Pain, Shoulder Pain, Arm Pain, Hand Pain, Leg Pain, Foot Pain, Other - Medications/Allergies Allergies/Adverse Reactions: Allergies Allergy/AdvReac Type Severity Reaction Status Date / Time No Known Drug Allergies Allergy Verified 04/29/17 16:42 Medications: Current Medications Acetaminophen (Tylenol) 650 mg [place] Q4H PRN PRN Reason: Headache/Fever or Pain Acetaminophen (Tylenol) 650 mg PO Q4H PRN PRN Reason: Headache/Fever or Mild Pain Last Admin: 05/03/17 05:11 Dose: 650 mg Hydrocodone Bitart/Acetaminophen ([place] 10/325) 1 tab PO Q4H PRN PRN Reason: Moderate Pain (4-6) Last Admin: 05/06/17 04:56 Dose: 1 tab Al Hydroxide/Mg Hydroxide (Maalox) 30 ml PO Q6H PRN PRN Reason: Heartburn or Indigestion Amlodipine Besylate (Norvasc) 2.5 mg PO DAILY [facility] Last Admin: 05/06/17 08:35 Dose: 2.5 mg Artificial Tears (Tears Naturale) 0 drop EA EYE PRN PRN PRN Reason: Dry Eyes Benazepril HCl (Lotensin) 40 mg PO DAILY [facility] Last Admin: 05/06/17 08:33 Dose: 40 mg Bisacodyl (Dulcolax) 10 mg [place] QAM [facility] Stop: 05/10/17 09:01 Last Admin: 05/06/17 08:38 Dose: 10 mg Carbamazepine (Tegretol) 200 mg PO QID [facility] Last Admin: 05/06/17 08:36 Dose: 200 mg Clonazepam (Klonopin) 1 mg PO QID [facility] Last Admin: 05/06/17 08:36 Dose: 1 mg Estradiol (Estrace 0.01% Vaginal Cream) 1 gm VAG HS [facility] Last Admin: 05/05/17 20:35 Dose: 1 gm Famotidine (Pepcid) 20 mg SLOW IVP Q12HR [facility] Last Admin: 05/06/17 08:37 Dose: 20 mg Fluticasone Propionate (Flonase Nasal [place]) 0 gm NASAL BID [facility] Last Admin: 05/06/17 08:36 Dose: 2 spr Guaifenesin (Robitussin Sf) 200 mg PO Q4H PRN PRN Reason: Cough Hydralazine HCl (Apresoline) 10 mg SLOW IVP Q4H PRN PRN Reason: Systolic BP > 180 Last Admin: 05/01/17 06:25 Dose: 10 mg Sodium Chloride (Normal Saline 0.9%) 1,000 mls @ 75 mls/hr IV .[id number] [facility] Last Admin: 05/05/17 22:24 Dose: Not Given Ceftriaxone Sodium 2 gm/ (Sodium Chloride) 100 mls @ 200 mls/hr IVPB 2100 [facility] Last Admin: 05/05/17 20:36 Dose: 100 mls Loperamide HCl (Imodium) 2 mg PO PRN PRN PRN Reason: Diarrhea/Loose Stools Loratadine/Pseudoephedrine Sulfate (Claritin-D 24 Hour) 1 tab PO DAILY [facility] Last Admin: 05/06/17 08:36 Dose: 1 tab Magnesium Hydroxide (Milk Of Magnesium) 30 ml PO DAILYPRN PRN PRN Reason: Constipation Mineral Oil/White Petrolatum (Eucerin Cream) 0 gm TOP BIDPRN PRN PRN Reason: Dry Skin Morphine Sulfate (Morphine) 2 mg SLOW IVP Q4H PRN PRN Reason: Severe Pain (7-10) Last Admin: 05/06/17 08:37 Dose: 2 mg Ondansetron HCl (Zofran) 4 mg IVP Q6H PRN PRN Reason: Nausea/Vomiting Ondansetron HCl (Zofran Odt) 4 mg PO Q6H PRN PRN Reason: Nausea/Vomiting Oxycodone HCl (Oxycodone Ir) 5 mg PO Q6H PRN PRN Reason: .BREAKTHROUGH PAIN Oxycodone HCl (Oxycodone Ir) 10 mg PO Q6H PRN PRN Reason: .BREAKTHROUGH PAIN SEVERE Last Admin: 05/06/17 03:42 Dose: 10 mg Oxycodone HCl (Oxycontin) 60 mg PO Q12HR [facility] Last Admin: 05/06/17 08:34 Dose: 60 mg Phenol (Chloraseptic [place] 180 Ml Bot) 0 ml PO PRN PRN PRN Reason: Sore Throat Polyethylene Glycol (Miralax) 17 gm PO DAILY [facility] Last Admin: 05/06/17 08:37 Dose: 17 gm Pregabalin (Lyrica) 100 mg PO HS [facility] Last Admin: 05/05/17 20:33 Dose: 100 mg Rosuvastatin Calcium (Crestor) 20 mg PO HS [facility] Last Admin: 05/05/17 20:32 Dose: 20 mg Senna (Senokot) 2 tab PO HSPRN PRN PRN Reason: Constipation Sodium Chloride ([place] Nasal [place] 0.65%) 0 ml EA NARE QIDPRN PRN PRN Reason: Nasal Congestion Temazepam (Restoril) 15 mg PO HSPRN PRN PRN Reason: Insomnia
[2017-05-06] MEDS: Sodium Chloride 0.9% 1,000 ML IV SCH (14:22)
[2017-05-06] MEDS: cefTRIAXone\\ROCEPHIN 2 GM in Sodium Chloride 0.9% 100 ML IVPB SCH (21:12)
[2017-05-06] MEDS: Estradiol 0.01% Vaginal Cream 42.5 gm Tube VAG SCH (21:12)
[2017-05-06] MEDS: Rosuvastatin 20 MG TAB PO SCH (21:15)
[2017-05-06] MEDS: Pregabalin 50 MG CAP PO SCH (21:16)
[2017-05-07] MEDS: oxyCODONE 5 MG TAB PO PRN ×2 (00:01→13:26)
[2017-05-07] MEDS: HYDROcodone/Acetaminophen 10/325 mg Tablet PO PRN ×4 (00:02→17:08)
[2017-05-07] MEDS: Sodium Chloride 0.9% 1,000 ML IV SCH ×2 (01:10→16:07)
[2017-05-07] MEDS: Polyethylene Glycol 3350 17 GM Packet PO SCH (09:02)
[2017-05-07] MEDS: Loratadine/Pseudoephedrine 10/240 mg Tablet PO SCH (09:02)
[2017-05-07] MEDS: Bisacodyl 10 MG SUPP PR SCH (09:02)
[2017-05-07] MEDS: carBAMazepine 200 MG TAB PO SCH ×3 (09:03→17:10)
[2017-05-07] MEDS: clonazePAM 1 MG TAB PO SCH ×3 (09:03→17:09)
[2017-05-07] MEDS: Amlodipine 5 MG TAB PO SCH (09:04)
[2017-05-07] MEDS: oxyCODONE ER 20 MG TAB PO SCH (09:05)
[2017-05-07] MEDS: Fluticasone Propionate Nasal Spray 16 gm Bottle NASAL SCH (09:06)
[2017-05-07] MEDS: Famotidine/PF 20 mg/2ml Vial SLOW IVP SCH (09:07)
--- NOTE | 2017-05-07 11:18 | PDOC.PN ---
- Subjective Encounter Start Date: 05/07/17 Encounter Start Time: 09:00 Patient seen and examined. No new complaints. No overnight events - Objective Resuscitation Status: Resuscitation Status FULL:Full Resuscitation MAR Reviewed: Yes Vital Signs & Weight: Vital Signs (12 hours) Temp Pulse Resp BP BP Pulse Ox 05/07/17 09:04 78 05/07/17 09:03 140/75 05/07/17 04:00 98.1 F 78 16 122/72 95 05/07/17 00:20 99.7 F H 88 16 132/72 96 Weight Admit Weight 135 lb Weight 135 lb I&O: 05/06/17 05/07/17 05/08/17 06:59 06:59 06:59 Intake Total 960 2395 Output Total 5850 2375 Balance -4890 20 Result Diagrams: 05/01/17 05:45 05/01/17 05:45 Phys Exam - Physical Examination Constitutional: NAD HEENT: PERRLA, moist MMs, sclera anicteric Neck: no JVD, supple Respiratory: no wheezing, no rales, no rhonchi Cardiovascular: RRR, no significant murmur, no rub Gastrointestinal: soft, non-tender, no distention, positive bowel sounds Musculoskeletal: no edema, pulses present paraplegia Psychiatric: normal affect Skin: no rash, normal turgor Dx/Plan (1) Hyponatremia Code(s): E87.1 - HYPO-OSMOLALITY AND HYPONATREMIA Status: Resolved (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 - NEOPLM OF UNSP BEHAV OF ENDO GLANDS AND OTH PRT NERVOUS SYS Status: Acute Comment: s/p thorecic laminectomy and tumor excision (3) Paraplegia at T9 level Code(s): G83.9 - PARALYTIC SYNDROME, UNSPECIFIED Status: Acute (4) UTI (urinary tract infection) Status: Acute (5) Chronic pain disorder Code(s): G89.4 - CHRONIC PAIN SYNDROME Status: Chronic (6) Dyslipidemia Code(s): E78.5 - HYPERLIPIDEMIA, UNSPECIFIED Status: Chronic (7) Hypertension Code(s): I10 - ESSENTIAL (PRIMARY) HYPERTENSION Status: Chronic (8) Schwannoma Code(s): D36.10 - BENIGN NEOPLASM OF PRPH NERVES AND AUTONM NERVOUS SYS, UNSP Status: Chronic (9) Mass of left thigh Code(s): R22.42 - LOCALIZED SWELLING, MASS AND LUMP, LEFT LOWER LIMB Status: Acute (10) Urinary retention with incomplete bladder emptying Code(s): R33.9 - RETENTION OF URINE, UNSPECIFIED Status: Acute - Plan cont current plan of care, plan discussed w/ family, continue antibiotics, PT/OT , social service liaison, DVT proph w/SCDs * medication reviewed as below * symptomatic treatment * await placement * insurance auth pending * continue intermittent self urinary catheterization * continue rocephin. Review of Systems - Review of Systems Constitutional: negative: fever, chills, sweats, weakness, malaise, other ENT: negative: Ear Pain, Ear Discharge, Nose Pain, Nose Discharge, Nose Congestion, Mouth Pain, Mouth Swelling, Throat Pain, Throat Swelling, Other Respiratory: negative: Cough, Dry, Shortness of Breath, Hemoptysis, SOB with Excertion, Pleuritic Pain, Sputum, Wheezing Cardiovascular: negative: chest pain, palpitations, orthopnea, paroxysmal nocturnal dyspnea, edema, light headedness, other Gastrointestinal: negative: Nausea, Vomiting, Abdominal Pain, Diarrhea, Constipation, Melena, Hematochezia, Other Genitourinary: negative: Dysuria, Frequency, Incontinence, Hematuria, Retention , Other Skin: negative: Rash, Lesions, Adriel, Bruising, Other - Medications/Allergies Allergies/Adverse Reactions: Allergies Allergy/AdvReac Type Severity Reaction Status Date / Time No Known Drug Allergies Allergy Verified 04/29/17 16:42 Medications: Current Medications Acetaminophen (Tylenol) 650 mg [place] Q4H PRN PRN Reason: Headache/Fever or Pain Acetaminophen (Tylenol) 650 mg PO Q4H PRN PRN Reason: Headache/Fever or Mild Pain Last Admin: 05/03/17 05:11 Dose: 650 mg Hydrocodone Bitart/Acetaminophen ([place] 10/325) 1 tab PO Q4H PRN PRN Reason: Moderate Pain (4-6) Last Admin: 05/07/17 09:05 Dose: 1 tab Al Hydroxide/Mg Hydroxide (Maalox) 30 ml PO Q6H PRN PRN Reason: Heartburn or Indigestion Amlodipine Besylate (Norvasc) 2.5 mg PO DAILY [facility] Last Admin: 05/07/17 09:04 Dose: 2.5 mg Artificial Tears (Tears Naturale) 0 drop EA EYE PRN PRN PRN Reason: Dry Eyes Benazepril HCl (Lotensin) 40 mg PO DAILY [facility] Last Admin: 05/07/17 09:03 Dose: 40 mg Bisacodyl (Dulcolax) 10 mg [place] QAM [facility] Stop: 05/10/17 09:01 Last Admin: 05/07/17 09:02 Dose: 10 mg Carbamazepine (Tegretol) 200 mg PO QID [facility] Last Admin: 05/07/17 09:03 Dose: 200 mg Clonazepam (Klonopin) 1 mg PO QID [facility] Last Admin: 05/07/17 09:03 Dose: 1 mg Estradiol (Estrace 0.01% Vaginal Cream) 1 gm VAG HS [facility] Last Admin: 05/06/17 21:12 Dose: 1 gm Famotidine (Pepcid) 20 mg SLOW IVP Q12HR [facility] Last Admin: 05/07/17 09:07 Dose: 20 mg Fluticasone Propionate (Flonase Nasal [place]) 0 gm NASAL BID [facility] Last Admin: 05/07/17 09:06 Dose: 1 spr Guaifenesin (Robitussin Sf) 200 mg PO Q4H PRN PRN Reason: Cough Hydralazine HCl (Apresoline) 10 mg SLOW IVP Q4H PRN PRN Reason: Systolic BP > 180 Last Admin: 05/01/17 06:25 Dose: 10 mg Sodium Chloride (Normal Saline 0.9%) 1,000 mls @ 75 mls/hr IV .[id number] [facility] Last Admin: 05/07/17 01:10 Dose: Not Given Ceftriaxone Sodium 2 gm/ (Sodium Chloride) 100 mls @ 200 mls/hr IVPB 2100 [facility] Last Admin: 05/06/17 21:12 Dose: 100 mls Loperamide HCl (Imodium) 2 mg PO PRN PRN PRN Reason: Diarrhea/Loose Stools Loratadine/Pseudoephedrine Sulfate (Claritin-D 24 Hour) 1 tab PO DAILY [facility] Last Admin: 05/07/17 09:02 Dose: 1 tab Magnesium Hydroxide (Milk Of Magnesium) 30 ml PO DAILYPRN PRN PRN Reason: Constipation Last Admin: 05/06/17 17:26 Dose: 30 ml Mineral Oil/White Petrolatum (Eucerin Cream) 0 gm TOP BIDPRN PRN PRN Reason: Dry Skin Morphine Sulfate (Morphine) 2 mg SLOW IVP Q4H PRN PRN Reason: Severe Pain (7-10) Last Admin: 05/07/17 05:25 Dose: 2 mg Ondansetron HCl (Zofran) 4 mg IVP Q6H PRN PRN Reason: Nausea/Vomiting Ondansetron HCl (Zofran Odt) 4 mg PO Q6H PRN PRN Reason: Nausea/Vomiting Oxycodone HCl (Oxycodone Ir) 5 mg PO Q6H PRN PRN Reason: .BREAKTHROUGH PAIN Oxycodone HCl (Oxycodone Ir) 10 mg PO Q6H PRN PRN Reason: .BREAKTHROUGH PAIN SEVERE Last Admin: 05/07/17 00:01 Dose: 10 mg Oxycodone HCl (Oxycontin) 60 mg PO Q12HR [facility] Last Admin: 05/07/17 09:05 Dose: 60 mg Phenol (Chloraseptic [place] 180 Ml Bot) 0 ml PO PRN PRN PRN Reason: Sore Throat Polyethylene Glycol (Miralax) 17 gm PO DAILY [facility] Last Admin: 05/07/17 09:02 Dose: 17 gm Pregabalin (Lyrica) 100 mg PO HS [facility] Last Admin: 05/06/17 21:16 Dose: 100 mg Rosuvastatin Calcium (Crestor) 20 mg PO HS [facility] Last Admin: 05/06/17 21:15 Dose: 20 mg Senna (Senokot) 2 tab PO HSPRN PRN PRN Reason: Constipation Sodium Chloride ([place] Nasal [place] 0.65%) 0 ml EA NARE QIDPRN PRN PRN Reason: Nasal Congestion Temazepam (Restoril) 15 mg PO HSPRN PRN PRN Reason: Insomnia
[2017-05-07 17:18] VITALS: BP 132/70; TEMP 97.9
--- NOTE | 2017-05-08 09:54 | DIS ---
DATE OF ADMISSION: 04/29/2017 DATE OF DISCHARGE: 05/07/2017 PRIMARY CARE PHYSICIAN: Indira Wood M.D. PRIMARY ATTENDING: Ravinder White M.D. DISCHARGE DISPOSITION: Rehabilitation. PRIMARY DISCHARGE DIAGNOSES: 1. 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 2. Mass of left thigh, suspected for schwannoma. 3. Urinary retention requiring self catheterization due to neurogenic bladder. 4. Urinary tract infection. 5. Hyponatremia, resolved. SECONDARY DISCHARGE DIAGNOSES: Schwannoma, hypertension, dyslipidemia, chronic pain disorder. PRIMARY PROCEDURE/OPERATION: Dr. Christopher Castellon did T5-T7 thoracic laminectomy and excision of in traductal extramedullary tumor. RADIOLOGICAL INVESTIGATION: Thoracic spine MRI, lumbar spine MRI, ultrasound of the lower extremity. SIGNIFICANT LABORATORY DATA: Hemoglobin 11.5, INR 1.0, creatinine 0.70, sodium 136. Urine culture g rew E. coli. DISCHARGE MEDICATIONS: Amlodipine 2.5 mg p.o. daily, benazepril 40 mg p.o. daily, Tegretol 200 mg q. i.d., cetirizine one tablet p.o. daily p.r.n., Klonopin 1 mg p.o. q.i.d., Flonase nasal spray daily, naproxen 500 mg p.o. b.i.d. p.r.n., Macrobid 100 mg p.o. b.i.d. for 5 more days, oxycodone 2 tablets p.o. q.6 hourly p.r.n., OxyContin 60 mg p.o. b.i.d., MiraLax 17 grams p.o. daily, Lyrica 200 mg p.o. at bedtime, Crestor 20 mg p.o. at bedtime. CONTRAINDICATIONS: None. CODE STATUS: FULL CODE. INPATIENT MANAGER MOBILE: Dr. White with Primary Sound Team consulted for medical management. Dr. Khari young, Urology was consulted for urinary retention. TEST RESULTS PENDING ON DISCHARGE: None. ALLERGIES: No known drug allergies. DISCHARGE PLAN: Post hospital, patient is discharged to Rehab and subsequently patient will follow w [facility] primary care physician and neurosurgeon. HOSPITAL COURSE: A 61-year-old female who was admitted by neurosurgeon for progressive paraplegia. She had thoracic and lumbar spine MRI which showed intraductal extramedullary tumor with spinal cord compression, suspected for schwannoma. Patient underwent surgical procedure with excision of tumor a nd T5-T7 thoracic laminectomy. Subsequently, pathology report came back as positive for schwannoma. She had left thigh mass which is also suspected for schwannoma. This patient has chronic pain from schwannoma and at this time she had paraplegia because of spinal cord tumor with spinal cord compress ion. She developed a neurogenic bladder and that is why we called Urology was consulted and they rec ommended in and out catheterization. The patient had hyponatremia that was improved with IV fluid. While in hospital, her urinary tract infection was treated with Rocephin and on discharge we prescrib ed Macrobid. At this point, the patient is needing PT and OT and that is why with help of embedded case manager, we arrange d rehabilitation. She will continue all her previous medication as above. The patient is medically stable for discharg e. The patient is seen and examined at bedside today. Please see my progress note from that day on the day of discharge.
--- NOTE | 2017-05-13 09:32 | PQF ---
KAREN WHEAT JONATHAN A MD [id number] [facility] [id number] CLINICAL DOCUMENTATION CLARIFICATION FORM: POST DISCHARGE Addendum to original discharge summary date: ____ Late entry note date: __ DATE: 05/13/2017 ATTN: Please exercise your independent, professional judgment in responding to the clarification form. Clinical indicators are provided on the bottom of this form for your review Please check appropriate box(s): In the description of the operative procedure a __DURAL DEFECT was noted by the surgeon. If possible would you please further clarify if this was: [ ] Incidental occurrence inherent in the surgical procedure [ ] Complication of the procedure [ ] Other [ ] Unable to determine For continuity of documentation, please document condition throughout progress notes and discharge summary. Thank You. CLINICAL INDICATORS - SIGNS / SYMPTOMS / LABS: 05/01 OP REPORT - "AT THE MEDIAL ASPECT A LARGE DURAL DEFECT HAS BEEN CREATED BY THE TUMOR" RISK FACTOR: EXTRAMEDULLARY TUMOR TREATMENTS: Surgery / surgical instrumentation (This form is maintained as a part of the permanent medical record) 2014 [employer]. All Rights Reserved Laure Rosales, CINDY, [email or web address] [email or web address] [phone] MTDD
== END 2017-05-07 18:58 | DRG 519 ==
LOC: ERS 11:43 → SJJU 18:29
PROVIDERS: ADMIT Family Medicine; ATTEND Family Medicine
PROC: B03BZZZ Magnetic Resonance Imaging (MRI) of Spinal Cord (ICD-10-PCS; 2017-04-30)
PROC: 00BX0ZX Excision of Thoracic Spinal Cord, Open Approach, Diagnostic (ICD-10-PCS; principal; 2017-05-01)
DX: D36.10 Benign neoplasm of peripheral nerves and autonomic nervous system, unspecified (principal); E87.1 Hypo-osmolality and hyponatremia; G83.9 Paralytic syndrome, unspecified; G95.20 Unspecified cord compression; N39.0 Urinary tract infection, site not specified; N31.9 Neuromuscular dysfunction of bladder, unspecified; R33.9 Retention of urine, unspecified; I10 Essential (primary) hypertension; E78.5 Hyperlipidemia, unspecified; D36.13 Benign neoplasm of peripheral nerves and autonomic nervous system of lower limb, including hip; B96.20 Unspecified Escherichia coli [E. coli] as the cause of diseases classified elsewhere; N95.9 Unspecified menopausal and perimenopausal disorder; Z79.891 Long term (current) use of opiate analgesic; K59.00 Constipation, unspecified; G89.4 Chronic pain syndrome
CPT/HCPCS: 36415; 51702; 72157; 72158; 76001; 80048; 80053; 81003; 81015; 85025; 85610; 85730; 86850; 86900; 86901; 87077; 87086; 87186; 88307; 88342; 88360; 93005; 93970; 96365; 96375; G8978-GP-CM; G8979-GP-CL; G8987-GO-CM; G8988-GO-CK; J0360; J0696; J1100; J1170; J2001; J2060; J2250; J2270; J2405; J2704; J3010; J3370; J7050; S0028

== ENCOUNTER 2017-05-30 00:10 | Inpatient (IN) | payer BC ==
[2017-05-30] MEDS ORDERED: Morphine 10 MG/ML VIAL ONE (01:37)
[2017-05-30] MEDS ORDERED: Ondansetron HCl/PF 4 MG/2 ML Vial ONE (01:37)
[2017-05-30 01:51] LABS: #Basophils 0.1 thou/uL (0.0-0.2); #Eosinphils 0.1 thou/uL (0.0-0.7); #Lymphocytes 0.9 thou/uL (1.20-3.40); #Monocytes 0.5 thou/uL (0.11-0.59); #Neutrophils 8.1 thou/uL (1.40-6.50); %Basophils 1.4 % (0.0-1.0); %Eosinophils 0.8 % (0.0-10.0); %Lymphocytes 9.3 % (21.0-51.0); %Monocytes 5.5 % (0.0-10.0); Hemoglobin 11.5 g/dL (12.0-16.0); Mean Corpuscular HGB CONC 34.3 g/dL (32.0-36.0); Mean Corpuscular Hemoglobin 29.3 pg (27.0-31.0); Mean Corpuscular Volume 85.4 fl (81.0-99.0); Mean Platelet Volume 6.6 fL (7.4-10.4); Platelet Count 259 thou/uL (130-400); RBC Distribution Width 12.1 % (11.5-14.5); Red Blood Cell (RBC) Count 3.92 mill/uL (4.20-5.40); White Blood Cell (WBC) Count 9.8 thou/uL (4.8-10.8)
[2017-05-30 01:57] LABS: Bilirubin Negative (Negative); Blood, Urine Negative (Negative); Clarity Clear (Clear); Glucose, Urine (Dipstick) Negative (Negative); Leukocyte Negative (Negative); Nitrite Negative (Negative); Protein, Urine (Dipstick) Negative (Neg-Trace); Specific Gravity, Urine 1.015 (1.005-1.030); Urobilinogen 0.2 mg/dL (0.2-1.0)
[2017-05-30 02:12] LABS: ALT (SGPT) 14 U/L (8-55); AST (SGOT) 17 U/L (5-34); Albumin 3.7 g/dL (3.4-4.8); Alkaline Phosphatase 113 U/L (40-150); Anion Gap 14 mmol/L (10-20); BUN (Urea Nitrogen) 9 mg/dL (9.8-20.1); Bilirubin, Total 0.2 mg/dL (0.2-1.2); Calc. Creatinine Clearance 0 mL/min (70-130); Calcium 9.7 mg/dL (7.8-10.44); Carbon Dioxide 28 mmol/L (23-31); Chloride 101 mmol/L (98-107); Estimated GFR-MDRD 77; Globulin 2.7 g/dL (2.4-3.5); Glucose 115 mg/dL (80-115); Potassium 3.9 mmol/L (3.5-5.1); Protein, Total 6.4 g/dL (6.0-8.3); Sodium 139 mmol/L (136-145)
[2017-05-30] MEDS ORDERED: Sodium Chloride 0.9% 100 ML ONE (03:01)
[2017-05-30] MEDS ORDERED: cefTRIAXone\\ROCEPHIN 2 GM VIAL ONE (03:01)
[2017-05-30] MEDS ORDERED: Promethazine HCl 25 MG/ML VIAL ONE (03:44)
[2017-05-30] MEDS ORDERED: Promethazine HCl 25 MG in Sodium Chloride 0.9% 50 ML IVPB PRN (04:59)
[2017-05-30] MEDS ORDERED: Dextrose 5 % And 0.9 % NaCl 1,000 ML IV SCH (05:00)
[2017-05-30] MEDS ORDERED: Acetaminophen 325 MG TAB PO PRN (05:02)
[2017-05-30] MEDS ORDERED: Ondansetron ODT 4 MG TAB SL PRN (05:02)
[2017-05-30] MEDS ORDERED: Ondansetron HCl/PF 4 MG/2 ML Vial IVP PRN ×2 (05:02→15:43)
[2017-05-30 05:05] VITALS: BMI 23.8
[2017-05-30] MEDS ORDERED: Ondansetron ODT 4 MG TAB PO PRN (15:43)
[2017-05-30] MEDS ORDERED: Morphine 2 MG/ML SYRINGE SLOW IVP PRN (16:00)
[2017-05-30] MEDS ORDERED: Morphine 2 MG/ML SYRINGE SLOW IVP SCH (16:00)
--- NOTE | 2017-05-30 16:04 | CON ---
DATE OF CONSULTATION: 05/30/2017 HISTORY OF PRESENT ILLNESS: The patient is a 61-year-old female status post T5-T7 laminectomy with schwannoma resection on 04/30/2017, who presented to the emergency department on 05/30/2017 for fever, nausea, vomiting. Following the patient surgery, she continued to have significant lower extremity weakness and bowel or bladder dysfunction with urinary retention requiring straight cath and constipation requiring intensive bowel regimen. She was transitioned to rehab where she had improving strength in the lower extremities,and was even able to walk a few steps with her walker. Bladder function also improving and patient was no longer requiring straight catheterization. She was transitioned to home on 05/27/2017. reports she was doing well until last night when she developed nausea, vomiting, and fever as high as 100.8 at home. She was brought to the emergency department for further evaluation. Patient's labs showed a normal WBC and unremarkable CMP, negative influenza screen. Urine cultures and blood cultures were sent and are pending. Patient was admitted to the medicine service for further management and Neurosurgery consult was also placed considering patient' s recent spinal surgery. I am seeing patient at the bedside. She is afebrile since her admission. She states that she is feeling much better after IV fluids and some medications. She is very weak in the bilateral lower extremities 3+/5; however, this is consistent with her previous admission. She is hyporeflexive. Incision is healing well. There is no drainage, redness, dehiscence, or other signs of infection. She has no meningismus or nuchal rigidity and she denies any headache. REVIEW OF SYSTEMS: Per HPI. PAST MEDICAL HISTORY: Schwannomatosis, hypertension, hyperlipidemia. PAST SURGICAL HISTORY: Schwannoma excision of the left wrist, right sciatic nerve and cranial 5 nerve, T5-T7 laminectomy with schwannoma resection on 2017. FAMILY HISTORY: Noncontributory. SOCIAL HISTORY: Patient lives at home. She is . She does not smoke, drink, or use any drugs. PHYSICAL EXAMINATION: VITAL SIGNS: Temperature is 98.2, heart rate 69, blood pressure is 165/74, respiration rate is 12. Patient is 95% on room air. GENERAL: Patient is lying comfortably in the bed in no acute distress. She reports she is comfortable. HEENT: Normocephalic, atraumatic. ENT: Oral mucosa are pink intact and moist. EYES: PERRLA. Extraocular movements are intact. NECK: Supple, nontender to palpation. Free active range of motion, no meningismus or nuchal rigidity. CARDIOVASCULAR: Regular rate and rhythm. RESPIRATORY: Patient is breathing comfortably. No evidence of respiratory distress. ABDOMEN: Soft, nontender to palpation throughout. MUSCULOSKELETAL: She is noted to have 2+ pitting edema to bilateral lower extremities. She is weak in bilateral lower extremities 3-/5. However, this is consistent with her previous admission. She is hyporeflexive in the lower extremities. She has good strength to bilateral upper extremities, 5/5. BACK: Incision appears to be healing nicely. Sutures are in place. There is no drainage dictations redness or surrounding swelling. NEUROLOGIC: She is A&O x4. She is weak in bilateral lower extremities 3-/5. No acute neurologic changes appear to be present. ASSESSMENT AND PLAN: Patient appears to be healing well from her recent surgery. There is no sign of surgical infection when inspecting the wound. Since her admission, she has had no additional fever and lab work appears to be normal at this time. Her blood cultures are pending. She does not appear to require any acute neurosurgical intervention. Patient has a postop appointment with us on 06/04/2017, which we will encourage her to keep. Please reach out to Neurosurgery Service for additional questions or concerns. RUBY
[2017-05-30] MEDS: Sodium Chloride 0.9% 1,000 ML IV SCH (16:44)
[2017-05-30] MEDS: oxyCODONE 5 MG TAB PO PRN ×2 (17:15→21:15)
[2017-05-30] MEDS: carBAMazepine 200 MG TAB PO SCH ×2 (17:16→21:11)
[2017-05-30] MEDS: Acetaminophen 325 MG TAB PO PRN (17:16)
[2017-05-30] MEDS: clonazePAM 1 MG TAB PO SCH ×2 (17:16→21:12)
[2017-05-30] MEDS: Famotidine 20 MG TAB PO SCH (21:12)
[2017-05-30] MEDS: Gabapentin 300 MG CAP PO SCH (21:13)
[2017-05-30] MEDS: oxyCODONE ER 20 MG TAB PO SCH (21:14)
[2017-05-30] MEDS: Rosuvastatin 20 MG TAB PO SCH (21:15)
[2017-05-31] MEDS: Sodium Chloride 0.9% 1,000 ML IV SCH ×2 (02:42→13:45)
[2017-05-31] MEDS: oxyCODONE 5 MG TAB PO PRN ×5 (04:29→22:29)
[2017-05-31 05:58] LABS: #Basophils 0.1 thou/uL (0.0-0.2); #Eosinphils 0.2 thou/uL (0.0-0.7); #Lymphocytes 1.3 thou/uL (1.20-3.40); #Monocytes 0.6 thou/uL (0.11-0.59); #Neutrophils 4.1 thou/uL (1.40-6.50); %Basophils 1.4 % (0.0-1.0); %Eosinophils 2.7 % (0.0-10.0); %Lymphocytes 20.5 % (21.0-51.0); %Monocytes 9.6 % (0.0-10.0); %Neutrophils 65.9 % (42.0-75.0); Hemoglobin 10.1 g/dL (12.0-16.0); Mean Corpuscular Hemoglobin 30.4 pg (27.0-31.0); Mean Corpuscular Volume 92.1 fl (81.0-99.0); Mean Platelet Volume 7.3 fL (7.4-10.4); Platelet Count 222 thou/uL (130-400); RBC Distribution Width 12.5 % (11.5-14.5); Red Blood Cell (RBC) Count 3.33 mill/uL (4.20-5.40); White Blood Cell (WBC) Count 6.3 thou/uL (4.8-10.8)
[2017-05-31 06:10] LABS: ALT (SGPT) 9 U/L (8-55); AST (SGOT) 16 U/L (5-34); Albumin 2.9 g/dL (3.4-4.8); Alkaline Phosphatase 84 U/L (40-150); Anion Gap 10 mmol/L (10-20); BUN (Urea Nitrogen) 8 mg/dL (9.8-20.1); Bilirubin, Total 0.3 mg/dL (0.2-1.2); Calc. Creatinine Clearance 91 mL/min (70-130); Calcium 9.1 mg/dL (7.8-10.44); Carbon Dioxide 23 mmol/L (23-31); Chloride 110 mmol/L (98-107); Estimated GFR-MDRD 86; Globulin 2.2 g/dL (2.4-3.5); Glucose 85 mg/dL (80-115); Potassium 3.5 mmol/L (3.5-5.1); Protein, Total 5.1 g/dL (6.0-8.3); Sodium 139 mmol/L (136-145)
[2017-05-31] MEDS: Amlodipine 5 MG TAB PO SCH (08:24)
[2017-05-31] MEDS: Gabapentin 300 MG CAP PO SCH ×3 (08:26→22:07)
[2017-05-31] MEDS: Multivitamin W/ Minerals 1 TAB PO SCH (08:27)
[2017-05-31] MEDS: clonazePAM 1 MG TAB PO SCH ×4 (08:27→22:06)
[2017-05-31] MEDS: Famotidine 20 MG TAB PO SCH ×2 (08:27→22:07)
[2017-05-31] MEDS: Loratadine 10 MG TAB PO SCH (08:27)
[2017-05-31] MEDS: Fluticasone Propionate Nasal Spray 16 gm Bottle NASAL SCH (08:27)
[2017-05-31] MEDS: carBAMazepine 200 MG TAB PO SCH ×4 (08:27→22:07)
[2017-05-31] MEDS: oxyCODONE ER 20 MG TAB PO SCH ×2 (08:33→22:30)
[2017-05-31] MEDS: Enoxaparin Sodium 30 MG/0.3 ML SYRINGE SC SCH (08:42)
[2017-05-31] MEDS: Docusate 100 MG CAP PO SCH ×3 (11:04→22:08)
[2017-05-31] MEDS: Polyethylene Glycol 3350 17 GM Packet PO SCH (11:04)
[2017-05-31] MEDS: Senokot S 8.6-50 MG TAB PO SCH (22:07)
[2017-05-31] MEDS: Rosuvastatin 20 MG TAB PO SCH (22:08)
[2017-06-01] MEDS: Sodium Chloride 0.9% 1,000 ML IV SCH ×3 (00:19→17:48)
[2017-06-01] MEDS: Polyethylene Glycol 3350 17 GM Packet PO SCH (09:33)
[2017-06-01] MEDS: Amlodipine 5 MG TAB PO SCH (09:34)
[2017-06-01] MEDS: Gabapentin 300 MG CAP PO SCH ×3 (09:34→21:33)
[2017-06-01] MEDS: Multivitamin W/ Minerals 1 TAB PO SCH (09:34)
[2017-06-01] MEDS: clonazePAM 1 MG TAB PO SCH ×4 (09:34→21:35)
[2017-06-01] MEDS: Loratadine 10 MG TAB PO SCH (09:35)
[2017-06-01] MEDS: Famotidine 20 MG TAB PO SCH ×2 (09:35→21:35)
[2017-06-01] MEDS: carBAMazepine 200 MG TAB PO SCH ×4 (09:35→21:36)
[2017-06-01] MEDS: oxyCODONE ER 20 MG TAB PO SCH ×2 (09:35→21:35)
[2017-06-01] MEDS: Docusate 100 MG CAP PO SCH ×3 (09:35→21:34)
[2017-06-01] MEDS: Enoxaparin Sodium 30 MG/0.3 ML SYRINGE SC SCH (09:37)
[2017-06-01] MEDS: oxyCODONE 5 MG TAB PO PRN ×3 (09:45→17:44)
[2017-06-01] MEDS: Fluticasone Propionate Nasal Spray 16 gm Bottle NASAL SCH (09:46)
[2017-06-01] MEDS: Rosuvastatin 20 MG TAB PO SCH (21:34)
[2017-06-01] MEDS: Senokot S 8.6-50 MG TAB PO SCH (21:34)
[2017-06-02] MEDS: Sodium Chloride 0.9% 1,000 ML IV SCH ×2 (03:01→13:01)
[2017-06-02] MEDS: Enoxaparin Sodium 30 MG/0.3 ML SYRINGE SC SCH (08:33)
[2017-06-02] MEDS: Polyethylene Glycol 3350 17 GM Packet PO SCH (08:33)
[2017-06-02] MEDS: Amlodipine 5 MG TAB PO SCH (08:34)
[2017-06-02] MEDS: Docusate 100 MG CAP PO SCH ×3 (08:34→21:06)
[2017-06-02] MEDS: Gabapentin 300 MG CAP PO SCH ×3 (08:34→21:07)
[2017-06-02] MEDS: carBAMazepine 200 MG TAB PO SCH ×4 (08:34→21:07)
[2017-06-02] MEDS: oxyCODONE ER 20 MG TAB PO SCH ×2 (08:36→21:09)
[2017-06-02] MEDS: Multivitamin W/ Minerals 1 TAB PO SCH (08:36)
[2017-06-02] MEDS: Famotidine 20 MG TAB PO SCH ×2 (08:36→21:08)
[2017-06-02] MEDS: clonazePAM 1 MG TAB PO SCH ×4 (08:36→21:08)
[2017-06-02] MEDS: Loratadine 10 MG TAB PO SCH (08:36)
[2017-06-02] MEDS: oxyCODONE 5 MG TAB PO PRN ×4 (08:37→21:09)
[2017-06-02] MEDS: Fluticasone Propionate Nasal Spray 16 gm Bottle NASAL SCH (08:39)
--- NOTE | 2017-06-02 10:42 | PDOC.PN ---
- Subjective Encounter Start Date: 05/31/17 Encounter Start Time: 10:39 Subjective: seen and examined--feeling better but still nauseated - Objective Resuscitation Status: Resuscitation Status FULL:Full Resuscitation Vital Signs & Weight: Vital Signs (12 hours) Temp Pulse Resp BP BP BP Pulse Ox 06/02/17 08:36 147/72 H 06/02/17 08:34 78 06/02/17 08:02 98.7 F 78 20 147/74 H 94 L 06/02/17 08:00 98.7 F 78 20 06/02/17 03:52 99.5 F 88 16 147/72 H 92 L 06/01/17 23:45 98.5 F 68 20 155/75 H 98 Weight Weight 152 lb 3.2 oz I&O: 06/01/17 06/02/17 06/03/17 06:59 06:59 06:59 Intake Total 2500 1080 Output Total 625 Balance 1875 1080 Result Diagrams: 05/31/17 05:21 05/31/17 05:21 Phys Exam - Physical Examination Constitutional: NAD HEENT: PERRLA, moist MMs, sclera anicteric, TM's clear Neck: no nodes, no JVD, supple, full ROM Respiratory: no wheezing, no rales, no rhonchi Cardiovascular: RRR, no significant murmur, no rub Dx/Plan (1) Fever Code(s): R50.9 - FEVER, UNSPECIFIED Status: Acute (2) Nausea & vomiting Code(s): R11.2 - NAUSEA WITH VOMITING, UNSPECIFIED Status: Acute (3) Paraplegia at T9 level Code(s): G83.9 - PARALYTIC SYNDROME, UNSPECIFIED Status: Acute (4) Dyslipidemia Code(s): E78.5 - HYPERLIPIDEMIA, UNSPECIFIED Status: Chronic (5) Hypertension Code(s): I10 - ESSENTIAL (PRIMARY) HYPERTENSION Status: Chronic - Plan cont current plan of care, plan discussed w/ family, PT/OT, social media analyst Continue rehydration and antinausea medication -: Dispo planning * .
--- NOTE | 2017-06-02 10:46 | PDOC.PN ---
- Subjective Encounter Start Date: 06/01/17 Encounter Start Time: 10:45 Subjective: CSeen and examined sleeping but arousable--feeling good - Objective Resuscitation Status: Resuscitation Status FULL:Full Resuscitation Vital Signs & Weight: Vital Signs (12 hours) Temp Pulse Resp BP BP BP Pulse Ox 06/02/17 08:36 147/72 H 06/02/17 08:34 78 06/02/17 08:02 98.7 F 78 20 147/74 H 94 L 06/02/17 08:00 98.7 F 78 20 06/02/17 03:52 99.5 F 88 16 147/72 H 92 L 06/01/17 23:45 98.5 F 68 20 155/75 H 98 Weight Weight 152 lb 3.2 oz I&O: 06/01/17 06/02/17 06/03/17 06:59 06:59 06:59 Intake Total 2500 1080 Output Total 625 Balance 1875 1080 Result Diagrams: 05/31/17 05:21 05/31/17 05:21 Phys Exam - Physical Examination Constitutional: NAD HEENT: PERRLA, moist MMs, sclera anicteric, TM's clear Neck: no nodes, no JVD, supple, full ROM Respiratory: no wheezing, no rales, no rhonchi, clear to auscultation bilateral Cardiovascular: RRR, no significant murmur, no rub Dx/Plan (1) Fever Code(s): R50.9 - FEVER, UNSPECIFIED Status: Acute (2) Nausea & vomiting Code(s): R11.2 - NAUSEA WITH VOMITING, UNSPECIFIED Status: Acute (3) Paraplegia at T9 level Code(s): G83.9 - PARALYTIC SYNDROME, UNSPECIFIED Status: Acute (4) Dyslipidemia Code(s): E78.5 - HYPERLIPIDEMIA, UNSPECIFIED Status: Chronic (5) Hypertension Code(s): I10 - ESSENTIAL (PRIMARY) HYPERTENSION Status: Chronic - Plan plan discussed w/ family, 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
[2017-06-02 11:01] LABS: #Basophils 0.1 thou/uL (0.0-0.2); #Eosinphils 0.2 thou/uL (0.0-0.7); #Lymphocytes 1.3 thou/uL (1.20-3.40); #Monocytes 0.6 thou/uL (0.11-0.59); #Neutrophils 5.6 thou/uL (1.40-6.50); %Basophils 1.2 % (0.0-1.0); %Eosinophils 3.1 % (0.0-10.0); %Lymphocytes 16.9 % (21.0-51.0); %Monocytes 7.7 % (0.0-10.0); %Neutrophils 71.1 % (42.0-75.0); Hemoglobin 10.9 g/dL (12.0-16.0); Mean Corpuscular HGB CONC 33.6 g/dL (32.0-36.0); Mean Corpuscular Hemoglobin 29.4 pg (27.0-31.0); Mean Corpuscular Volume 87.5 fl (81.0-99.0); Mean Platelet Volume 7.6 fL (7.4-10.4); Platelet Count 221 thou/uL (130-400); RBC Distribution Width 12.6 % (11.5-14.5); Red Blood Cell (RBC) Count 3.71 mill/uL (4.20-5.40); White Blood Cell (WBC) Count 7.9 thou/uL (4.8-10.8)
[2017-06-02 11:20] LABS: Anion Gap 11 mmol/L (10-20); BUN (Urea Nitrogen) 7 mg/dL (9.8-20.1); Calc. Creatinine Clearance 90 mL/min (70-130); Calcium 9.4 mg/dL (7.8-10.44); Carbon Dioxide 26 mmol/L (23-31); Chloride 101 mmol/L (98-107); Estimated GFR-MDRD 85; Glucose 107 mg/dL (80-115); Potassium 3.9 mmol/L (3.5-5.1); Sodium 134 mmol/L (136-145)
--- NOTE | 2017-06-02 12:56 | PDOC.PN ---
- Subjective Encounter Start Date: 06/02/17 Encounter Start Time: 12:55 CC: nAUSEA AND VOMITING SUB: Pe RN pt is tolertaing diet, no fever, pt denies nausea or vomiting - Objective Resuscitation Status: Resuscitation Status FULL:Full Resuscitation Vital Signs & Weight: Vital Signs (12 hours) Temp Pulse Resp BP BP BP Pulse Ox 06/02/17 11:16 98.7 F 80 16 143/74 H 92 L 06/02/17 08:36 147/72 H 06/02/17 08:34 78 06/02/17 08:02 98.7 F 78 20 147/74 H 94 L 06/02/17 08:00 98.7 F 78 20 06/02/17 03:52 99.5 F 88 16 147/72 H 92 L Weight Weight 152 lb 3.2 oz I&O: 06/01/17 06/02/17 06/03/17 06:59 06:59 06:59 Intake Total 2500 1080 Output Total 625 Balance 1875 1080 Result Diagrams: 06/02/17 10:40 06/02/17 10:40 Phys Exam - Physical Examination Constitutional: NAD HEENT: moist MMs Neck: no JVD Respiratory: no wheezing, no rales, no rhonchi Cardiovascular: RRR, no significant murmur, no rub Gastrointestinal: soft, non-tender distende,d no guarding, no tenderness Musculoskeletal: no edema awake, alert, follows commands Psychiatric: normal affect Dx/Plan - Plan Dx/Plan (1) Fever Code(s): R50.9 - FEVER, UNSPECIFIED Status: Acute (2) Nausea & vomiting Code(s): R11.2 - NAUSEA WITH VOMITING, UNSPECIFIED Status: Acute (3) Paraplegia at T9 level Code(s): G83.9 - PARALYTIC SYNDROME, UNSPECIFIED Status: Acute (4) Dyslipidemia Code(s): E78.5 - HYPERLIPIDEMIA, UNSPECIFIED Status: Chronic (5) Hypertension Code(s): I10 - ESSENTIAL (PRIMARY) HYPERTENSION Status: Chronic 6. S/P Laminectomy T5-T7 - Plan Nausea and vomiting resolved. Tolerating diet. Possible viral gastroenteritis Cultures no growth so far. Fever resolved S/P laminectomy. Appreciate neurosurgery input Waiting for placement Case d/w pt & RN & pt
[2017-06-02] MEDS: Senokot S 8.6-50 MG TAB PO SCH (21:08)
[2017-06-02] MEDS: Rosuvastatin 20 MG TAB PO SCH (21:08)
[2017-06-03] MEDS: Sodium Chloride 0.9% 1,000 ML IV SCH ×4 (00:46→22:09)
[2017-06-03] MEDS: oxyCODONE 5 MG TAB PO PRN ×3 (06:16→18:16)
[2017-06-03] MEDS: Gabapentin 300 MG CAP PO SCH ×3 (09:08→20:58)
[2017-06-03] MEDS: Famotidine 20 MG TAB PO SCH ×2 (09:09→20:57)
[2017-06-03] MEDS: Amlodipine 5 MG TAB PO SCH (09:09)
[2017-06-03] MEDS: carBAMazepine 200 MG TAB PO SCH ×4 (09:09→20:57)
[2017-06-03] MEDS: clonazePAM 1 MG TAB PO SCH ×4 (09:09→20:58)
[2017-06-03] MEDS: Multivitamin W/ Minerals 1 TAB PO SCH (09:10)
[2017-06-03] MEDS: Docusate 100 MG CAP PO SCH ×3 (09:11→20:58)
[2017-06-03] MEDS: Loratadine 10 MG TAB PO SCH (09:11)
[2017-06-03] MEDS: Fluticasone Propionate Nasal Spray 16 gm Bottle NASAL SCH (09:20)
[2017-06-03] MEDS: oxyCODONE ER 20 MG TAB PO SCH ×2 (09:26→20:56)
[2017-06-03] MEDS: Enoxaparin Sodium 30 MG/0.3 ML SYRINGE SC SCH (09:51)
[2017-06-03] MEDS: Polyethylene Glycol 3350 17 GM Packet PO SCH (10:55)
--- NOTE | 2017-06-03 11:43 | PDOC.PN ---
- Subjective Encounter Start Date: 06/03/17 Encounter Start Time: 11:25 Subjective: f/u for N/V which has improved though required Zofran this am. -: Voiding regularly, still remains weak and unable to ambulate. Uses a bed- -: side toilet. Requesting return to rehab/SNF. - Objective Resuscitation Status: Resuscitation Status FULL:Full Resuscitation MAR Reviewed: Yes Vital Signs & Weight: Vital Signs (12 hours) Temp Pulse Resp BP Pulse Ox 06/03/17 09:02 100.6 F H 92 L 06/03/17 08:00 100.1 F H 80 16 137/74 89 L 06/03/17 04:00 98 F 82 16 142/77 H 96 Weight Weight 152 lb 3.2 oz I&O: 06/02/17 06/03/17 06/04/17 06:59 06:59 06:59 Intake Total 1080 980 Balance 1080 980 Result Diagrams: 06/02/17 10:40 06/02/17 10:40 Additional Labs: Microbiology 05/30/17 02:36 Nasal swab Influenza Types A,B Direct EIA - Final 05/30/17 01:50 Urine Straight Catheter Urine Culture - Final NO GROWTH AT 48 HOURS 05/30/17 02:10 Venous blood - Right Arm Blood Culture - Preliminary NO GROWTH AT 48 HOURS 05/30/17 01:33 Venous blood - Left Arm Blood Culture - Preliminary NO GROWTH AT 48 HOURS Phys Exam - Physical Examination sleepy, opens eyes to questions/name HEENT: PERRLA, oral pharynx no lesions Neck: no JVD, supple Respiratory: no wheezing, clear to auscultation bilateral Cardiovascular: RRR Gastrointestinal: soft, non-tender, no distention, positive bowel sounds mild edema of feet bilat Musculoskeletal: pulses present 2-3/5 strength of LE's Neurological: moves all 4 limbs Psychiatric: A&O x 3 Skin: normal turgor, cap refill <2 seconds Dx/Plan (1) Fever Code(s): R50.9 - FEVER, UNSPECIFIED Status: Acute Comment: Low-grade temp noted, likely due to atelectasis due to lack of mobility, OOB to chair, IS at bedside (2) Nausea & vomiting Code(s): R11.2 - NAUSEA WITH VOMITING, UNSPECIFIED Status: Acute Comment: Improved, likely multifactorial, Zofran prn (3) Intradural-extramedullary spinal cord neoplasms Code(s): D49.7 - NEOPLM OF UNSP BEHAV OF ENDO GLANDS AND OTH PRT NERVOUS SYS Status: Acute Comment: s/p thorecic laminectomy and tumor excision, stable per Neurosurgery (4) Mass of left thigh Code(s): R22.42 - LOCALIZED SWELLING, MASS AND LUMP, LEFT LOWER LIMB Status: Acute Comment: Likely Schwannoma, follow clinically (5) Paraplegia at T9 level Code(s): G83.9 - PARALYTIC SYNDROME, UNSPECIFIED Status: Chronic Comment: Improved after resection, PT/OT for mobilization, Rehab/SNF options pending (6) Chronic pain disorder Code(s): G89.4 - CHRONIC PAIN SYNDROME Status: Chronic Comment: Monitor current pain med regimen, high risk for constipation and sedation - Plan plan discussed w/ family, PT/OT, long term care social worker, out of bed/ambulate, DVT proph w/SCDs Stable overall -: CM consult for Rehab/SNF options -: Bowel regimen with Senna/Colace -: PT for mobilization/OOB to chair -: Saline lock IVF *
[2017-06-03] MEDS: Rosuvastatin 20 MG TAB PO SCH (20:57)
[2017-06-03] MEDS: Senokot S 8.6-50 MG TAB PO SCH (20:58)
--- NOTE | 2017-06-04 05:55 | HP ---
DATE OF ADMISSION: 05/30/2017 CHIEF COMPLAINT: Nausea, vomiting, diarrhea, and fever. HISTORY OF PRESENT ILLNESS: This is a 61-year-old female patient who recently did undergo a T5-T7 la minectomy in the context of schwannoma resection. Patient's postop was complicated with urinary rete ntion and constipation for which patient was managed medically including intermittent catheterization . After awhile, patient transitioned over to rehab and did undergo rehabilitation prior to being dis charged home. A few days prior to presentation, the patient developed fever, nausea, vomiting, and d iarrhea, and presented to the ER where initial investigation pretty much unremarkable except that of intravascular depletion/dehydration. The patient is now being admitted for further workup including rehydration. PAST MEDICAL HISTORY: Significant for schwannoma, hypertension, dyslipidemia. MEDICATIONS: Reviewed and as documented on [facility]. FAMILY HISTORY: Not significantly related to presenting illness. SOCIAL HISTORY: The patient is apparently , living with her . No alcohol, no tobacco, no illicit drug use. REVIEW OF SYSTEMS: As documented in the body of the history, otherwise all other systems were review ed and found not to be significantly related to presenting illness. LABORATORY INVESTIGATION: Showed a white count of 9400, hemoglobin 11.5. Chemistry is pretty much u nremarkable. Urine unremarkable. PHYSICAL EXAMINATION: GENERAL: The patient was found not to be in any respiratory distress with the following vital signs. VITAL SIGNS: Afebrile with temperature 98.9, pulse 69, respiratory rate 16, O2 sat 95% with a blood pressure 160/84. HEENT: Unremarkable with moist oral mucosa. Neck is supple. No conjunctival injection or icterus. CARDIOVASCULAR SYSTEM: First and second heart sounds were heard. RESPIRATORY SYSTEM: Clear to auscultation. DIGESTIVE SYSTEM: Reviewed a benign abdomen. EXTREMITIES: No peripheral edema. SKIN: No new gross rash. LYMPHATICS: No peripheral lymphadenopathy. IMPRESSION: 1. Nausea, vomiting, and diarrhea, likely gastroenteritis. 2. History of schwannoma, status post resection. 3. Hypertension. 4. Further management to be dependent on the clinical course. PLAN: 1. Admit patient and initiate IV fluid resuscitation. 2. Follow up on the urine and blood cultures. 3. Further management will be dependent on the clinical course.
[2017-06-04] MEDS: oxyCODONE 5 MG TAB PO PRN (06:23)
[2017-06-04] MEDS: Enoxaparin Sodium 30 MG/0.3 ML SYRINGE SC SCH (10:04)
[2017-06-04] MEDS: oxyCODONE ER 20 MG TAB PO SCH ×2 (10:05→20:56)
[2017-06-04] MEDS: Gabapentin 300 MG CAP PO SCH ×3 (10:06→20:58)
[2017-06-04] MEDS: carBAMazepine 200 MG TAB PO SCH ×4 (10:07→20:59)
[2017-06-04] MEDS: Famotidine 20 MG TAB PO SCH ×2 (10:07→20:59)
[2017-06-04] MEDS: Amlodipine 5 MG TAB PO SCH (10:07)
[2017-06-04] MEDS: Docusate 100 MG CAP PO SCH ×3 (10:08→20:59)
[2017-06-04] MEDS: Loratadine 10 MG TAB PO SCH (10:08)
[2017-06-04] MEDS: clonazePAM 1 MG TAB PO SCH ×4 (10:08→21:00)
[2017-06-04] MEDS: Multivitamin W/ Minerals 1 TAB PO SCH (10:08)
[2017-06-04] MEDS: Fluticasone Propionate Nasal Spray 16 gm Bottle NASAL SCH (10:09)
[2017-06-04] MEDS: Polyethylene Glycol 3350 17 GM Packet PO SCH (10:09)
--- NOTE | 2017-06-04 12:51 | PDOC.PN ---
- Subjective Encounter Start Date: 06/04/17 Encounter Start Time: 12:45 Subjective: f/u for N/V that has resolved. Low-grade fever noted in last 24h of -: unclear source. - Objective Resuscitation Status: Resuscitation Status FULL:Full Resuscitation MAR Reviewed: Yes Vital Signs & Weight: Vital Signs (12 hours) Temp Pulse Resp BP BP Pulse Ox 06/04/17 12:18 100.4 F H 79 16 149/76 H 93 L 06/04/17 10:07 76 155/77 H 06/04/17 10:06 155/77 H 06/04/17 07:43 99 F 76 16 155/77 H 93 L Weight Weight 152 lb 3.2 oz I&O: 06/03/17 06/04/17 06/05/17 06:59 06:59 06:59 Intake Total 980 680 Balance 980 680 Result Diagrams: 06/02/17 10:40 06/02/17 10:40 Additional Labs: Microbiology 05/30/17 02:36 Nasal swab Influenza Types A,B Direct EIA - Final 05/30/17 01:50 Urine Straight Catheter Urine Culture - Final NO GROWTH AT 48 HOURS 05/30/17 02:10 Venous blood - Right Arm Blood Culture - Preliminary NO GROWTH AT 48 HOURS 05/30/17 01:33 Venous blood - Left Arm Blood Culture - Preliminary NO GROWTH AT 48 HOURS Phys Exam - Physical Examination Constitutional: NAD HEENT: PERRLA, oral pharynx no lesions Neck: no JVD, supple Respiratory: no wheezing Cardiovascular: RRR Gastrointestinal: soft, non-tender, no distention, positive bowel sounds Musculoskeletal: pulses present Psychiatric: A&O x 3 Skin: normal turgor, cap refill <2 seconds Dx/Plan (1) Fever Code(s): R50.9 - FEVER, UNSPECIFIED Status: Acute Comment: Low-grade temp noted, likely due to atelectasis due to lack of mobility, OOB to chair, IS at bedside, check PCXR and Ucx (2) Nausea & vomiting Code(s): R11.2 - NAUSEA WITH VOMITING, UNSPECIFIED Status: Acute Comment: Improved, likely multifactorial, Zofran prn (3) Intradural-extramedullary spinal cord neoplasms Code(s): 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 - NEOPLM OF UNSP BEHAV OF ENDO GLANDS AND OTH PRT NERVOUS SYS Status: Acute Comment: s/p thorecic laminectomy and tumor excision, stable per Neurosurgery (4) Mass of left thigh Code(s): R22.42 - LOCALIZED SWELLING, MASS AND LUMP, LEFT LOWER LIMB Status: Acute Comment: Likely Schwannoma, follow clinically (5) Paraplegia at T9 level Code(s): G83.9 - PARALYTIC SYNDROME, UNSPECIFIED Status: Chronic Comment: Improved after resection, PT/OT for mobilization, Rehab/SNF options pending (6) Chronic pain disorder Code(s): G89.4 - CHRONIC PAIN SYNDROME Status: Chronic Comment: Monitor current pain med regimen, high risk for constipation and sedation - Plan 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
--- NOTE | 2017-06-04 13:41 | RAD ---
PORTABLE CHEST 1 VIEW: Date: 06/04/17 Time: 1329 hours HISTORY: Fever, immobility. FINDINGS/IMPRESSION: The heart size is normal. The aorta is tortuous. The lungs are well expanded. A mass-like density is seen at the right lung base. No infiltrates, pneumothoraces, or pleural effusions are seen. Further e valuation with CT scan is recommended. POS: OFF
[2017-06-04] MEDS: Sodium Chloride 0.9% 1,000 ML IV SCH (14:20)
[2017-06-04] MEDS: Rosuvastatin 20 MG TAB PO SCH (20:55)
[2017-06-04] MEDS: Senokot S 8.6-50 MG TAB PO SCH (20:58)
[2017-06-05] MEDS: Sodium Chloride 0.9% 1,000 ML IV SCH ×3 (00:44→23:00)
[2017-06-05 05:02] LABS: Eosinophils 1 % (0-10); Hemoglobin 10.2 g/dL (12.0-16.0); Lymphocytes 29 % (21-51); MDiff Complete? YES; Mean Corpuscular HGB CONC 33.6 g/dL (32.0-36.0); Mean Corpuscular Hemoglobin 29.3 pg (27.0-31.0); Mean Corpuscular Volume 87.1 fl (81.0-99.0); Mean Platelet Volume 7.7 fL (7.4-10.4); Monocytes 4 % (0-10); Neutrophil 65 % (42-75); Platelet Count 214 thou/uL (130-400); RBC Distribution Width 12.9 % (11.5-14.5); Reactive Lymphocytes 1 % (0-10); Red Blood Cell (RBC) Count 3.49 mill/uL (4.20-5.40); White Blood Cell (WBC) Count 6.6 thou/uL (4.8-10.8)
[2017-06-05] MEDS: Gabapentin 300 MG CAP PO SCH ×3 (08:28→21:08)
[2017-06-05] MEDS: oxyCODONE ER 20 MG TAB PO SCH ×2 (08:28→21:09)
[2017-06-05] MEDS: Enoxaparin Sodium 30 MG/0.3 ML SYRINGE SC SCH (08:28)
[2017-06-05] MEDS: Loratadine 10 MG TAB PO SCH (08:29)
[2017-06-05] MEDS: Polyethylene Glycol 3350 17 GM Packet PO SCH (08:29)
[2017-06-05] MEDS: Docusate 100 MG CAP PO SCH ×3 (08:29→21:08)
[2017-06-05] MEDS: carBAMazepine 200 MG TAB PO SCH ×4 (08:29→21:07)
[2017-06-05] MEDS: clonazePAM 1 MG TAB PO SCH ×4 (08:30→21:08)
[2017-06-05] MEDS: Famotidine 20 MG TAB PO SCH ×2 (08:30→21:08)
[2017-06-05] MEDS: Multivitamin W/ Minerals 1 TAB PO SCH (08:30)
[2017-06-05] MEDS: Amlodipine 5 MG TAB PO SCH (08:30)
[2017-06-05] MEDS: Fluticasone Propionate Nasal Spray 16 gm Bottle NASAL SCH (08:32)
[2017-06-05] MEDS ORDERED: ISOVUE-370 76%-LOCM 1 ML ONE (11:12)
--- NOTE | 2017-06-05 14:09 | PDOC.PN ---
- Subjective Encounter Start Date: 06/05/17 Encounter Start Time: 14:00 Subjective: f/u for initial N/V now resolved. Intermittent fevers noted without focal -: findings. s/p thoracic spinal Schwannoma resection and severe decondition- -: ing. Awaiting SNF options but limited availability. - Objective Resuscitation Status: Resuscitation Status FULL:Full Resuscitation MAR Reviewed: Yes Vital Signs & Weight: Vital Signs (12 hours) Temp Pulse Resp BP BP BP Pulse Ox 06/05/17 12:00 98.1 F 80 20 151/73 H 94 L 06/05/17 08:30 77 168/82 H 06/05/17 07:55 97.9 F 77 20 168/82 H 96 06/05/17 04:00 97.5 F L 77 16 139/75 92 L Weight Weight 152 lb 3.2 oz I&O: 06/04/17 06/05/17 06/06/17 06:59 06:59 06:59 Intake Total 680 340 Balance 680 340 Result Diagrams: 06/05/17 03:15 06/02/17 10:40 Radiology Reviewed by me: Yes (PCXR - mass-like density in R lung base) Phys Exam - Physical Examination Constitutional: NAD HEENT: PERRLA, oral pharynx no lesions Neck: no JVD, supple Respiratory: no wheezing, clear to auscultation bilateral Cardiovascular: RRR Gastrointestinal: soft, non-tender, no distention, positive bowel sounds mild LE edema Musculoskeletal: pulses present, edema present Neurological: normal sensation, moves all 4 limbs Psychiatric: A&O x 3 Skin: normal turgor, cap refill <2 seconds Dx/Plan (1) Fever Code(s): R50.9 - FEVER, UNSPECIFIED Status: Acute Comment: Low-grade temp noted, likely due to atelectasis due to lack of mobility, OOB to chair, IS at bedside, PCXR with ? 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 - NEOPLM OF UNSP BEHAV OF ENDO GLANDS AND OTH PRT NERVOUS SYS Status: Acute Comment: s/p thoracic laminectomy and tumor excision, stable per Neurosurgery, needs SNF placement due to severely limited mobility, deconditioning, fall risk (4) Mass of left thigh Code(s): R22.42 - LOCALIZED SWELLING, MASS AND LUMP, LEFT LOWER LIMB Status: Acute Comment: Likely Schwannoma, follow clinically (5) Paraplegia at T9 level Code(s): G83.9 - PARALYTIC SYNDROME, UNSPECIFIED Status: Chronic Comment: Improved after resection, PT/OT for mobilization, Rehab/SNF options pending (6) Chronic pain disorder Code(s): G89.4 - CHRONIC PAIN SYNDROME Status: Chronic Comment: Monitor current pain med regimen, high risk for constipation and sedation (7) Mass of right lung Code(s): R91.8 - OTHER NONSPECIFIC ABNORMAL FINDING OF LUNG FIELD Status: Suspected Comment: ? etiology or presence, check CT chest to confirm, ? 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
[2017-06-05 17:11] LABS: Bilirubin Negative (Negative); Blood, Urine Negative (Negative); Clarity CLOUDY (Clear); Glucose, Urine (Dipstick) Negative (Negative); Leukocyte Trace (Negative); Nitrite Negative (Negative); Protein, Urine (Dipstick) Negative (Neg-Trace); Specific Gravity, Urine 1.014 (1.002-1.036)
[2017-06-05 17:12] LABS: Bacteria/HPF Rare-Few HPF (None Seen); Hyaline Casts/LPF 4-6 HYALINE CAST LPF (0-3 Hyaline); Pathc Cast-AUWi Flag 1.76 (0-2.49); Squamous Epithelial 21-50 HPF (0-3)
--- NOTE | 2017-06-05 17:33 | CT ---
CT CHEST WITH CONTRAST: 06/05/17 Multiple axial tomograms obtained through the chest with IV enhancement. Multiplanar reconstruction. HISTORY: Mass density seen at the right cardiophrenic angle on chest x-ray. FINDINGS: There is a circumscribed low density mass at the right cardiophrenic angle measuring 4.7 cm AP dimens ion. Densities are cystic measured at 10 Hounsfield units. This is most consistent with a pericardial cyst. This cyst abuts the right pericardium and also abuts the hemidiaphragm at the cardiophrenic an gle. The lung torres show some chronic parenchymal change with some mild interstitial prominence posterior ly. No infiltrate or mass identified. A small calcified granuloma in the right lung base. There is a tiny 3 to 4 mm nodule in the right middle lobe best seen on coronal imaging. No significant pulmonary nodule identified. There is a small fixed diaphragmatic hernia. Mediastinum otherwise unremarkable. Images through upper abdomen are unremarkable. A review of the osseous structures reveal laminectomy changes in mid thora cic spine which appears to extend from T5 through T8. Posterior to these laminectomy change is a circ umscribed low dense collection which extends from T5 through T10 vertebra posteriorly. At the laminec kaiden site, this process extends to the epidural space and flattens the posterior thecal sac abutting the cord. it measures 4.0 cm AP dimension. It measures 12 cm craniocaudal in the coronal plane and 5 cm width in the coronal plane. The density of this collection is recorded at 19 Hounsfield units whic h is higher than expected for simple cyst or CSF collection. Considerations include pseudomeningocele , hematoma, seroma, and abscess. IMPRESSION: 1. Circumscribed fluid dense mass lesion in the right cardiophrenic angle is most consistent wit h a pericardial cyst. 2. There is a low dense collection posterior to the thoracic spine as described above at the andrade inectomy site with this collection extending to the epidural space. Dimensions are given above. Consi derations are as noted above. Recommend neurosurgical consultation. 3. Other findings as noted above. Dr. Reynolds notification at the time of this exam. POS: [facility]
[2017-06-05] MEDS: Rosuvastatin 20 MG TAB PO SCH (21:07)
[2017-06-05] MEDS: Senokot S 8.6-50 MG TAB PO SCH (21:07)
--- NOTE | 2017-06-05 21:58 | PDOC.EVN ---
Event Note - Event Note Event Note: CT chest showing ? pericardial cyst and also thoracic spine fluid collection at prior Schwannoma resection. Re-consulted Neurosurgery for evaluation.
[2017-06-05] MEDS: Acetaminophen 325 MG TAB PO PRN (22:46)
[2017-06-06] MEDS: oxyCODONE 5 MG TAB PO PRN (02:29)
--- NOTE | 2017-06-06 08:51 | PRG ---
DATE OF SERVICE: 06/06/2017 ATTENDING PHYSICIAN: Dr. Ravinder White I am seeing the patient at the bedside. She is awake, alert, in no acute distress. She recently had a CT of the thorax which showed fluid collection around the postsurgical site. I reviewed these michael ges with Dr. White who feels that this likely represents CSF collection which is not unusual consi dering intradural lesion. Her incision today remains dry. She is neurologically unchanged and very weak in the lower extremities with a 3/5 strength throughout the lower extremities. She has good str ength in the upper extremities 5/5. I anticipate the patient will require placement at skilled [facility] facility and we are currently awaiting placement with the assistance of case management. No [facility] neurosurgical intervention is indicated at this time. Please reach out to the Neurosurgery Servic e for additional questions or concerns.
[2017-06-06] MEDS: Polyethylene Glycol 3350 17 GM Packet PO SCH (09:22)
[2017-06-06] MEDS: Enoxaparin Sodium 30 MG/0.3 ML SYRINGE SC SCH (09:22)
[2017-06-06] MEDS: carBAMazepine 200 MG TAB PO SCH ×4 (09:22→20:57)
[2017-06-06] MEDS: oxyCODONE ER 20 MG TAB PO SCH ×2 (09:23→20:58)
[2017-06-06] MEDS: Famotidine 20 MG TAB PO SCH ×2 (09:23→20:57)
[2017-06-06] MEDS: Gabapentin 300 MG CAP PO SCH ×3 (09:23→20:57)
[2017-06-06] MEDS: Multivitamin W/ Minerals 1 TAB PO SCH (09:24)
[2017-06-06] MEDS: Loratadine 10 MG TAB PO SCH (09:24)
[2017-06-06] MEDS: clonazePAM 1 MG TAB PO SCH ×4 (09:24→20:57)
[2017-06-06] MEDS: Amlodipine 5 MG TAB PO SCH (09:25)
[2017-06-06] MEDS: Docusate 100 MG CAP PO SCH ×3 (09:25→20:57)
[2017-06-06] MEDS: Fluticasone Propionate Nasal Spray 16 gm Bottle NASAL SCH (09:27)
[2017-06-06] MEDS: Sodium Chloride 0.9% 1,000 ML IV SCH ×2 (09:27→18:01)
--- NOTE | 2017-06-06 10:32 | PQF ---
DATE: 06-06-17 ATTN: DR. BALTAZAR CANSECO Please exercise your independent, professional judgment in responding to the clarification form. Clinical indicators are provided on the bottom of this form for your review Please check appropriate box(s): [ x ] UTI please specify if due to or related to (as applicable): [ ] Contaminated urine specimen without UTI [ ] Other diagnosis [ ] Unable to determine In addition, please specify: Present on Admission (POA): [ x ] Yes [ ] No [ ] Unable to determine For continuity of documentation, please document condition throughout progress notes and discharge summary. Thank You. CLINICAL INDICATORS - SIGNS / SYMPTOMS / LABS ER DOCUMENTATION: HX OF UTI, RECENTLY REMAINED ON [facility] FOR UTI UNTIL 2 DAYS AGO URINE: 06-05-17: UR LEUKOCYTE ESTERASE: TRACE H URINE WBC: 4-6 H UR SQUAMOUS EPITH CELLS: 21-50 H HYALINE CASTS: 4-6 HYALINE CAST H TEMP: 3--18: 100.1, 100.1, 100.6 3--18: 100.4, 100.4 RISK FACTORS: ER DOCUMENTATION: HX OF UTI, RECENTLY REMAINED ON [facility] FOR UTI UNTIL 2 DAYS AGO TREATMENT: (MAR) IVF (ER ) [employer] (This form is maintained as a part of the permanent medical record) 2014 [employer]. All Rights Reserved [email or web address]: [phone] RUBY
--- NOTE | 2017-06-06 10:32 | PDOC.PN ---
- Subjective Encounter Start Date: 06/06/17 Encounter Start Time: 09:00 Subjective: no sob, nausea or vomiting -: not in distress, at bedside - Objective Resuscitation Status: Resuscitation Status FULL:Full Resuscitation MAR Reviewed: Yes Vital Signs & Weight: Vital Signs (12 hours) Temp Pulse Resp BP BP Pulse Ox 06/06/17 09:25 71 177/80 H 06/06/17 09:24 177/80 H 06/06/17 07:35 98.1 F 71 18 177/80 H 94 L 06/06/17 04:00 98.1 F 75 19 151/72 H 94 L 06/06/17 00:00 98.7 F 80 19 147/71 H 96 Weight Weight 152 lb 3.2 oz I&O: 06/05/17 06/06/17 06/07/17 06:59 06:59 06:59 Intake Total 340 340 Balance 340 340 Result Diagrams: 06/05/17 03:15 06/02/17 10:40 Phys Exam - Physical Examination HEENT: PERRLA, moist MMs Neck: no JVD, supple Respiratory: no wheezing, no rales Cardiovascular: RRR, no significant murmur Gastrointestinal: soft, non-tender, positive bowel sounds Musculoskeletal: no edema, pulses present Neurological: non-focal moves LE with gravity, left LE a bit against gravity Psychiatric: A&O x 3 a bit emotional Dx/Plan (1) Nausea & vomiting Code(s): R11.2 - NAUSEA WITH VOMITING, UNSPECIFIED Status: Resolved Comment : Improved, likely multifactorial, Zofran prn (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 - NEOPLM OF UNSP BEHAV OF ENDO GLANDS AND OTH PRT NERVOUS SYS Status: Acute Comment: s/p thoracic laminectomy and tumor excision, stable per Neurosurgery, needs SNF placement due to severely limited mobility, deconditioning, fall risk (3) Chronic pain disorder Code(s): G89.4 - CHRONIC PAIN SYNDROME Status: Chronic Comment: Monitor current pain med regimen, high risk for constipation and sedation (4) Dyslipidemia Code(s): E78.5 - HYPERLIPIDEMIA, UNSPECIFIED Status: Chronic (5) Hypertension Code(s): I10 - ESSENTIAL (PRIMARY) HYPERTENSION Status: Chronic Qualifiers: Hypertension type: essential hypertension Qualified Code(s): I10 - Essential (primary) hypertension (6) 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 Review of Systems - Medications/Allergies Allergies/Adverse Reactions: Allergies Allergy/AdvReac Type Severity Reaction Status Date / Time No Known Drug Allergies Allergy Verified 04/29/17 16:42 Medications: Current Medications Acetaminophen (Tylenol) 650 mg PO Q4H PRN PRN Reason: Headache/Fever or Pain Last Admin: 06/05/17 22:46 Dose: 650 mg Amlodipine Besylate (Norvasc) 2.5 mg PO DAILY [facility] Last Admin: 06/06/17 09:25 Dose: 2.5 mg Benazepril HCl (Lotensin) 40 mg PO DAILY [facility] Last Admin: 06/06/17 09:24 Dose: 40 mg Carbamazepine (Tegretol) 200 mg PO QID [facility] Last Admin: 06/06/17 09:22 Dose: 200 mg Clonazepam (Klonopin) 1 mg PO QID [facility] Last Admin: 06/06/17 09:24 Dose: 1 mg Docusate Sodium (Colace) 100 mg PO TID [facility] Last Admin: 06/06/17 09:25 Dose: 100 mg Enoxaparin Sodium (Lovenox) 30 mg SC 0900 [facility] Last Admin: 06/06/17 09:22 Dose: 30 mg Famotidine (Pepcid) 20 mg PO BID [facility] Last Admin: 06/06/17 09:23 Dose: 20 mg Fluticasone Propionate (Flonase Nasal [place]) 0 gm NASAL DAILY [facility] Last Admin: 06/06/17 09:27 Dose: 1 spr Gabapentin (Neurontin) 300 mg PO TID [facility] Last Admin: 06/06/17 09:23 Dose: 300 mg Sodium Chloride (Normal Saline 0.9%) 1,000 mls @ 100 mls/hr IV .Q10H [facility] Last Admin: 06/06/17 09:27 Dose: Not Given Iron/Minerals/Multivitamins (Theragran M) 1 tab PO DAILY [facility] Last Admin: 06/06/17 09:24 Dose: 1 tab Loratadine (Claritin) 10 mg PO DAILY [facility] Last Admin: 06/06/17 09:24 Dose: 10 mg Morphine Sulfate (Morphine) 2 mg SLOW IVP Q4H PRN PRN Reason: Pain Last Admin: 05/31/17 05:22 Dose: 2 mg Ondansetron HCl (Zofran Odt) 4 mg PO Q6H PRN PRN Reason: Nausea/Vomiting Last Admin: 06/03/17 09:55 Dose: 4 mg Ondansetron HCl (Zofran) 4 mg IVP Q6H PRN PRN Reason: Nausea/Vomiting Last Admin: 05/30/17 16:43 Dose: 4 mg Oxycodone HCl (Oxycodone Ir) 20 mg PO Q4H PRN PRN Reason: Pain Last Admin: 06/06/17 02:29 Dose: 20 mg Oxycodone HCl (Oxycontin) 60 mg PO BID [facility] Last Admin: 06/06/17 09:23 Dose: 60 mg Polyethylene Glycol (Miralax) 17 gm PO DAILY [facility] Last Admin: 06/06/17 09:22 Dose: 17 gm Rosuvastatin Calcium (Crestor) 20 mg PO [facility] Last Admin: 06/05/17 21:07 Dose: 20 mg Senna/Docusate Sodium (Senokot S) 2 tab PO [facility] Last Admin: 06/05/17 21:07 Dose: 2 tab
--- NOTE | 2017-06-06 12:44 | CON ---
DATE OF ADMISSION: 05/30/2017 DATE OF CONSULTATION: 06/06/2017 REASON FOR CONSULTATION: Evaluate right-sided pericardial cyst. HISTORY OF PRESENT ILLNESS: Ms. Moffett is a 61-year-old woman who recently underwent a T5-T7 laminect brien and schwannoma resection. She presented with fever, nausea, and vomiting. Chest x-ray showed a smooth walled right-sided just a pericardial shadow. This was followed up with a CT of the chest, wh ich shows a pericardial cyst. Patient has been asymptomatic from this pericardial cyst. PAST MEDICAL HISTORY: 1. Schwannoma. 2. Hypertension. 3. Dyslipidemia. PAST SURGICAL HISTORY: Schwannoma resection via posterior approach. SOCIAL HISTORY: She is , does not use alcohol or tobacco. I reviewed her CT scan and chest x-ray. ASSESSMENT AND PLAN: Benign pericardial cyst that does not need any treatment unless it grossly enla rged inside.
[2017-06-06] MEDS: Rosuvastatin 20 MG TAB PO SCH (20:57)
[2017-06-06] MEDS: Senokot S 8.6-50 MG TAB PO SCH (20:57)
[2017-06-07] MEDS: Sodium Chloride 0.9% 1,000 ML IV SCH (05:15)
[2017-06-07] MEDS: Loratadine 10 MG TAB PO SCH (09:25)
[2017-06-07] MEDS: Famotidine 20 MG TAB PO SCH (09:26)
[2017-06-07] MEDS: clonazePAM 1 MG TAB PO SCH ×2 (09:26→13:08)
[2017-06-07] MEDS: Amlodipine 5 MG TAB PO SCH (09:26)
[2017-06-07] MEDS: Docusate 100 MG CAP PO SCH ×2 (09:26→20:53)
[2017-06-07] MEDS: carBAMazepine 200 MG TAB PO SCH ×2 (09:27→13:08)
[2017-06-07] MEDS: Multivitamin W/ Minerals 1 TAB PO SCH (09:27)
[2017-06-07] MEDS: Gabapentin 300 MG CAP PO SCH ×2 (09:27→20:53)
[2017-06-07] MEDS: oxyCODONE ER 20 MG TAB PO SCH (09:28)
[2017-06-07] MEDS: Polyethylene Glycol 3350 17 GM Packet PO SCH (09:29)
[2017-06-07] MEDS: Enoxaparin Sodium 30 MG/0.3 ML SYRINGE SC SCH (09:29)
[2017-06-07] MEDS: Fluticasone Propionate Nasal Spray 16 gm Bottle NASAL SCH (09:31)
[2017-06-07 11:49] VITALS: BP 134/76; TEMP 98.9
[2017-06-07] MEDS: Acetaminophen 325 MG TAB PO PRN (13:13)
--- NOTE | 2017-06-07 13:41 | PDOC.PN ---
- Subjective Encounter Start Date: 06/07/17 Encounter Start Time: 09:10 Subjective: feels better, is amb in wheel chair - Objective Resuscitation Status: Resuscitation Status FULL:Full Resuscitation MAR Reviewed: Yes Vital Signs & Weight: Vital Signs (12 hours) Temp Pulse Resp BP BP BP Pulse Ox 06/07/17 11:34 98.9 F 82 16 134/76 97 06/07/17 09:26 79 160/83 H 06/07/17 08:00 98.6 F 79 16 160/83 H 96 06/07/17 04:56 97.9 F 79 16 153/77 H 95 Weight Weight 152 lb 3.2 oz I&O: 06/06/17 06/07/17 06/08/17 06:59 06:59 06:59 Intake Total 340 290 Balance 340 290 Result Diagrams: 06/05/17 03:15 06/02/17 10:40 Phys Exam - Physical Examination HEENT: PERRLA, moist MMs Neck: no JVD, supple Respiratory: no wheezing, no rales Cardiovascular: RRR, no significant murmur Gastrointestinal: soft, non-tender, positive bowel sounds Musculoskeletal: pulses present, edema present LE paraparesis Psychiatric: A&O x 3 Dx/Plan (1) Nausea & vomiting Code(s): R11.2 - NAUSEA WITH VOMITING, UNSPECIFIED Status: Resolved Comment : Improved, likely multifactorial, Zofran prn (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 - NEOPLM OF UNSP BEHAV OF ENDO GLANDS AND OTH PRT NERVOUS SYS Status: Acute Comment: s/p thoracic laminectomy and tumor excision, stable per Neurosurgery, needs SNF placement due to severely limited mobility, deconditioning, fall risk (3) Chronic pain disorder Code(s): G89.4 - CHRONIC PAIN SYNDROME Status: Chronic Comment: Monitor current pain med regimen, high risk for constipation and sedation (4) Dyslipidemia Code(s): E78.5 - HYPERLIPIDEMIA, UNSPECIFIED Status: Chronic (5) Hypertension Code(s): I10 - ESSENTIAL (PRIMARY) HYPERTENSION Status: Chronic Qualifiers: Hypertension type: essential hypertension Qualified Code(s): I10 - Essential (primary) hypertension (6) 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 * .
--- NOTE | 2017-06-07 21:35 | DIS ---
DATE OF ADMISSION: 05/30/2017 DATE OF DISCHARGE: 06/07/2017 DISCHARGE DISPOSITION: To home with home health. PRIMARY DISCHARGE DIAGNOSES: Severe physical deconditioning, history of recent thoracic laminectomy with resection of schwannoma, hypertension, dyslipidemia, paraparesis from T9 level, has history of schwannoma. PROCEDURES DONE DURING HOSPITALIZATION: CT chest done showed circumcised fluid dense mass lesion in the right cardiophrenic angle most consistent with a pericardial cyst. There is low dense collection posterior to the thoracic spine at the laminectomy site with fluid collection extending into the epidural space. Blood cultures x2 no growth. Urine culture no growth. Influenza A and B antigens were negative. H&H 10 and 30, platelet count 214. BUN 7, creatinine 0.7, albumin was 3.7 on admission. DISCHARGE MEDICATIONS: Norvasc 2.5 mg p.o. daily, benazepril 40 mg p.o. daily, carbamazepine 200 mg p.o. 4 times daily, Klonopin 1 mg p.o. 4 times daily, Colace 100 mg p.o. 3 times daily, Pepcid 20 mg p.o. twice daily, Neurontin 300 mg p.o. 3 times daily, multivitamin 1 tab once daily, oxycodone 60 mg p.o. twice daily that is extended release, oxycodone immediate release 20 mg q.4 p.r.n., MiraLax 17 grams daily, Crestor 20 mg p.o. at bedtime, Senna 8.6 mg 2 tabs p.o. at bedtime p.r.n. ALLERGIES: No known drug allergies. INPATIENT CONSULTS: Dr. White for Neurosurgery. BRIEF COURSE DURING HOSPITALIZATION: Patient initially got admitted on the with complaints of nausea, vomiting, diarrhea, and fever. The patient has had T5-T7 laminectomy with schwannoma resection done on 04/30/2017. She has had paraparesis secondary to that and was very slow to improve. Postsurgery, she had gone to rehab and from there, had gone home. In view of above-mentioned factors, patient was hospitalized. She has had severe deconditioning and manages to mobilize in her wheelchair at present. The plan was to send her to neuro rehab, but her insurance has declined the same. Patient and her are wanting to go home with home health. Figueroa cultures have been negative so far. She has remained hemodynamically and neurologically stable. Fluid collection around the surgical site on the thoracic spine is due to recent surgery per neurosurgery. Patient also had a pericardial cyst and was evaluated by Dr. Piper for Cardiothoracic Surgery and this is likely benign pericardial cyst, which does not need any treatment unless it enlarges. She is otherwise hemodynamically stable and will be shortly discharged home with home health. Please see a [id number] documentation on [facility] for the day of discharge. RUBY
== END 2017-06-07 16:00 | disposition home health service (06) | DRG 641 ==
LOC: SCSER 00:10 → OBSVTOIN 03:56 → SJJU 03:56
PROVIDERS: ADMIT Family Medicine; ATTEND Family Medicine
DX: E86.0 Dehydration (principal); G82.20 Paraplegia, unspecified; I10 Essential (primary) hypertension; E78.5 Hyperlipidemia, unspecified; Z99.3 Dependence on wheelchair; R22.42 Localized swelling, mass and lump, left lower limb; G89.29 Other chronic pain
CPT/HCPCS: 36415; 51701; 71045; 71260; 80048; 80053; 81001; 81003; 83605; 85007; 85025; 85027; 87040; 87086; 87804; 96361; 96374; 96375; G8978-GP-CM; G8979-GP-CK; G8987-GO-CM; G8988-GO-CK; J0696; J1650; J2270; J2405; J2550; J7050; Q0162

== ENCOUNTER 2017-07-25 13:58 | Emergency (ER) | payer BC ==
--- NOTE | 2017-07-25 15:30 | RAD ---
LEFT ARM 2 VIEWS: HISTORY: Emergency exam. Pain. Fall. COMPARISON: None. FINDINGS: The forearm is intact. No fracture. No malalignment. Recent old fracture of the mid radial diaphys is which is healed. IMPRESSION: Likely old mid radius fracture. No acute abnormality. Please see elbow radiographs. POS: [facility]
--- NOTE | 2017-07-25 15:31 | RAD ---
RIGHT ANKLE 3 VIEWS: HISTORY: Injury, right ankle pain. FINDINGS/IMPRESSION: There are nondisplaced fractures involving the medial and lateral malleoli. The ankle mortise is doron ntained. POS: [facility]
--- NOTE | 2017-07-25 15:33 | RAD ---
RIGHT HIP TWO VIEW: 07/25/17 HISTORY: Fall. Pain. COMPARISON: Abdomen radiograph 2018. FINDINGS: Evaluation of the hips is severely limited as this appears to be more of the proximal femur and less of the hips. No displaced fracture is appreciated. IMPRESSION: Limited exam due to the centering of the image which is centered on the mid femur. No displaced fract ure is appreciated. POS: [facility]
[2017-07-25] MEDS ORDERED: Morphine 4 MG/ML VIAL ONE ×2 (15:49→17:29)
[2017-07-25 15:55] LABS: Bilirubin Negative (Negative); Blood, Urine Negative (Negative); Clarity CLEAR (Clear); Glucose, Urine (Dipstick) Negative (Negative); Leukocyte Negative (Negative); Nitrite Negative (Negative); Protein, Urine (Dipstick) Negative (Neg-Trace); Specific Gravity, Urine 1.013 (1.002-1.036); Urobilinogen 0.2 mg/dL (0.2-1.0); pH, Urine 7.5 (5.0-9.0)
[2017-07-25 16:38] LABS: #Basophils 0.1 thou/uL (0.0-0.2); #Eosinphils 0.1 thou/uL (0.0-0.7); #Lymphocytes 0.9 thou/uL (1.20-3.40); #Monocytes 0.5 thou/uL (0.11-0.59); #Neutrophils 4.4 thou/uL (1.40-6.50); %Basophils 1.1 % (0.0-1.0); %Eosinophils 0.9 % (0.0-10.0); %Lymphocytes 15.2 % (21.0-51.0); %Monocytes 8.5 % (0.0-10.0); %Neutrophils 74.4 % (42.0-75.0); Mean Corpuscular HGB CONC 33.2 g/dL (32.0-36.0); Mean Corpuscular Hemoglobin 28.8 pg (27.0-31.0); Mean Corpuscular Volume 86.8 fl (81.0-99.0); Mean Platelet Volume 7.2 fL (7.4-10.4); Platelet Count 287 thou/uL (130-400); RBC Distribution Width 14.3 % (11.5-14.5); Red Blood Cell (RBC) Count 3.82 mill/uL (4.20-5.40); White Blood Cell (WBC) Count 5.9 thou/uL (4.8-10.8)
[2017-07-25 16:43] LABS: PTT 26.1 SEC (22.9-36.1); Prothrombin Time 13.6 SEC (12.0-14.7)
--- NOTE | 2017-07-25 16:51 | CT ---
BRAIN CT WITHOUT IV CONTRAST: 07/25/17 HISTORY: 61-year-old female with history of fall, hitting head on counter, trauma. No focal mass or midline shift. No intra or extra-axial hemorrhage. Sinuses and mastoids are clear. IMPRESSION: No acute intracranial process. No mass or bleed. POS: [facility]
--- NOTE | 2017-07-25 16:53 | CT ---
CT CERVICAL SPINE NONCONTRAST: 07/25/17 HISTORY: Fall. Neck injury. FINDINGS: Vertebral body heights and AP alignment are maintained. Mild leftward convexed curvature of the lower cervical spine is apparent on the coronal images. No acute fracture or dislocation. Cervicothoracic junction is intact. IMPRESSION: No acute osseous abnormalities are demonstrated. POS: [facility]
[2017-07-25 17:00] LABS: ALT (SGPT) 17 U/L (8-55); AST (SGOT) 17 U/L (5-34); Albumin 3.6 g/dL (3.4-4.8); Alkaline Phosphatase 87 U/L (40-150); Anion Gap 12 mmol/L (10-20); BUN (Urea Nitrogen) 8 mg/dL (9.8-20.1); Bilirubin, Total 0.3 mg/dL (0.2-1.2); Calc. Creatinine Clearance 0 mL/min (70-130); Calcium 9.2 mg/dL (7.8-10.44); Carbon Dioxide 28 mmol/L (23-31); Chloride 96 mmol/L (98-107); Estimated GFR-MDRD 85; Globulin 2.3 g/dL (2.4-3.5); Glucose 93 mg/dL (80-115); Potassium 4.7 mmol/L (3.5-5.1); Protein, Total 5.9 g/dL (6.0-8.3); Sodium 131 mmol/L (136-145)
--- NOTE | 2017-07-25 17:00 | RAD ---
CHEST ONE VIEW: 07/25/17 HISTORY: Chest injury. FINDINGS: The cardiac silhouette and pulmonary vasculature are unremarkable. Mediastinum is midline. Metallic c lip over the right suprahilar level is again demonstrated. There is no lobar consolidation or evidenc e of pneumothorax. IMPRESSION: No acute cardiopulmonary abnormalities are demonstrated. POS: [facility]
--- NOTE | 2017-07-25 17:01 | RAD ---
RIGHT KNEE FOUR VIEWS: 07/25/17 HISTORY: Fall. Right knee injury. FINDINGS: There is marked joint space loss at the lateral compartment with prominent tricompartmental osteophyt osis. No acute fracture, dislocation, or fluid distention of the joint capsule. IMPRESSION: Severe osteoarthritic changes right knee lateral compartment. POS: [facility]
--- NOTE | 2017-07-25 17:22 | RAD ---
RIGHT TIBIA AND FIBULA TWO VIEWS: 07/25/17 HISTORY: Fall. Accident. Pain. COMPARISON: None. FINDINGS: Limited evaluation of the right tibia and fibula due to overlying casting material. No fracture. No c ortical irregularity or periosteal reaction. IMPRESSION: Limited evaluation of fine bony detail due to overlying cast. No obvious fracture. POS: [facility]
--- NOTE | 2017-07-25 18:04 | RAD ---
LEFT TIBIA AND FIBULA TWO VIEWS: 07/25/17 HISTORY: Pain. Fall. COMPARISON: None. FINDINGS: Mild bone demineralization. No fracture. No cortical irregularity. No periosteal reaction. IMPRESSION: No posttraumatic sequela. POS: [facility]
[2017-07-25] MEDS ORDERED: Bacitracin Zinc 1 Packet ONE (18:13)
== END 2017-07-25 18:18 | disposition home or self-care (01) ==
LOC: ERS 13:58
DX: S82.844A Nondisplaced bimalleolar fracture of right lower leg, initial encounter for closed fracture (principal); S50.12XA Contusion of left forearm, initial encounter; I10 Essential (primary) hypertension; E78.00 Pure hypercholesterolemia, unspecified; Z79.899 Other long term (current) drug therapy; W18.30XA Fall on same level, unspecified, initial encounter
CPT/HCPCS: 27808; 36415; 51701; 70450; 71045; 72125; 80053; 81003; 85025; 85610; 85730; 86850; 86900; 86901; 96374; 96376; J2270

== ENCOUNTER 2017-07-31 19:39 | Emergency (ER) | payer BC | END 2017-07-31 21:07 | disposition home or self-care (01) | LOC: SCSER 19:39 | DX: M79.662 Pain in left lower leg (principal); I10 Essential (primary) hypertension; E78.00 Pure hypercholesterolemia, unspecified; Z79.899 Other long term (current) drug therapy | CPT/HCPCS: 99282 ==

== ENCOUNTER 2017-11-25 10:40 | Outpatient (CLI) | payer BC ==
--- NOTE | 2017-11-25 14:38 | MRI ---
MRI BRAIN WITH AND WITHOUT CONTRAST: DATE: 11/25/2017 HISTORY: 62-year-old female with R41.0, confusion. COMPARISON: 05/01/2007. TECHNIQUE: Multiple sequences obtained in axial, sagittal, and coronal planes; pre and post IV injection of gado linium-based contrast agent: 12 mL MultiHance. FINDINGS: There is moderate dilation of the lateral and third ventricles. This ventriculomegaly has increased s [place] 10 years ago. The fourth ventricle is at the upper limits of normal in size. Periventricular T2 hyperintense lining of signal abnormality. At least some of the nodular appearing such signal abnorma lities represent mild to moderate chronic ischemic white matter changes. The thin, more confluent hyp erintense signal abnormality may or may not represent transependymal migration of CSF. The degree of ventriculomegaly is somewhat out of proportion to prominence of the sulcal markings. There is no evid ence of recent or remote intra-axial hemorrhage. No restricted diffusion. No evidence of moderate siz ed or large cortical infarction of any age. No abnormal enhancement, mass, mass effect, midline shift , or extra-axial fluid collection. No Chiari I malformation. IMPRESSION: 1. Interval worsening of moderate ventriculomegaly. This could be due to central parenchymal volume loss, but the possibility of normal pressure hydrocephalus is raised. Clinical correlation is recomme nded (Is there gait apraxia, urinary incontinence, and/or dementia?). 2. Mild to moderate chronic ischemic white matter changes, mostly in a periventricular distribution. ZACHERY Owens POS: [facility]
== END 2017-11-25 10:41 | disposition home or self-care (01) ==
LOC: SCSMRI 10:40
PROVIDERS: ATTEND Psychiatry & Neurology Neurology
DX: R41.0 Disorientation, unspecified (principal); G93.89 Other specified disorders of brain
CPT/HCPCS: 70553; 82565

== ENCOUNTER 2019-02-18 08:05 | Outpatient (CLI) | payer BC ==
[2019-02-18] MEDS ORDERED: Gadobenate Dimeglumine 529 MG/1 ML (20ML VIAL) ONE (09:00)
--- NOTE | 2019-02-18 14:53 | MRI ---
Exam: Brain MRI with and without contrast HISTORY: Schwannomatosis COMPARISON: 11/25/2017 FINDINGS: Gradient echo sequence: Hemosiderin deposition in the region of a postsurgical fluid collection along the left parietal convexity, near the vertex. This fluid collection has mixed signal intensity suggesting components of fluid and blood. There appear to be epidural and subdural components. Overal l the collection measures 5.4 x 1.7 cm. Mass effect upon the left parietal lobe. No significant midline shift. Calvarium: Appropriate T1 marrow signal intensity Midline brain parenchyma: Unremarkable Cerebrum:No parenchymal mass, mass effect or midline shift. Brain volume is age-appropriate. Cortical davies-white matter differentiation is preserved. Ventricles: Persistent dilatation of ventricular system. The overall size of the ventricular system h as not changed. Sinuses and mastoid air cells: Partial opacification of bilateral mastoid air cells, right greater th an left. Degree of mastoid opacification has improved on the right side when compared to the previous exam. Diffusion: Central arterial flow is maintained. Absent restricted diffusion. Postcontrast images: No pathologic enhancement of the brain parenchyma. IMPRESSION: Postoperative changes with left parietal craniotomy defect. There is evidence of postoperative extra- axial blood without significant mass effect or midline shift. CODE T
--- NOTE | 2019-02-18 16:38 | MRI ---
MR OF THE LEFT THIGH WITH AND WITHOUT IV CONTRAST: 02/18/19 INDICATION: History of schwannomatosis. CONTRAST: 10 mL of Multihance was administered before the examination. No comparisons are available. FINDINGS: There are multiple fibroids noted within the uterus. There is a mild amount of retained stool within the colon. No suspicious marrow signal abnormality is evident. There is moderate atrophy of the left gluteus minimus and medius musculature. There is a well circumscribed T2 hyperintense, intermediate T1 signal intensity enhancing lesion seen near the piriformis musculature of the left posterior hip on image 6 of series 4 measuring 1 x 1.3 c m consistent with a nerve sheath tumor. Similar appearing lesion is seen within the left vastus inter medius musculature on image 44 of series 4 measuring 1.1 cm. An additional smaller lesion is seen wit hin the substance of the sciatic nerve along the posterior mid thigh on image 40 of series 4 measurin g 6 mm. There is mild degenerative arthrosis of the left hip. IMPRESSION: Small enhancing nerve sheath tumors involving the posterior left hip, mid left thigh sciatic nerve an d within the substance of the left vastus intermedius. 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 POS: [facility]
--- NOTE | 2019-02-18 16:52 | MRI ---
MR OF THE LEFT DISTAL FOREARM AND WRIST WITH AND WITHOUT CONTRAST: 02/18/19 INDICATIONS: History of schwannomatosis. TECHNIQUE: Multiplanar and multisequence images were obtained of the left wrist and distal left forearm within a region of palpable interest. 15 mL of Multihance was utilized for the exam. Motion artifact heavily limits image detail of the study. FINDINGS: Within the palpable region of interest, along the radial aspect of the base of the left thumb, is an 8.3 x 5 mm oval T2 hyperintense, enhancing mass consistent with a nerve sheath tumor. An additional s imilar appearing mass is seen adjacent to the FCU tendon measuring 1.4 x 0.9 cm. No additional focal mass lesion is evident. There is some mild degenerative change at the first CMC joint as well as port ions of the wrist carpus. The visualized intrinsic hand musculature appear within normal limits. The forearm musculature appears within normal limits. IMPRESSION: Two separate neural sheath tumors present within the region of the distal left forearm and base of th e left thumb. POS: [place]
== END 2019-02-18 08:06 | disposition home or self-care (01) ==
LOC: SCSMRI 08:05
PROVIDERS: ATTEND Psychiatry & Neurology Neurology with Special Qualifications in Child Neurology
DX: Q85.03 Schwannomatosis (principal); Z98.890 Other specified postprocedural states
CPT/HCPCS: 70553; 82565; A9577

== ENCOUNTER 2023-04-22 15:22 | Emergency (ER) | payer BC, OTHER | END 2023-04-22 17:03 | disposition left against medical advice (07) | LOC: ERS 15:22 | DX: Z53.21 Procedure and treatment not carried out due to patient leaving prior to being seen by health care provider (principal) ==